=== PATIENT | male | born 1935 | race Caucasian/White ===

== ENCOUNTER 2016-10-20 09:07 | Day surgery (SDC) | payer MEDICARE, BC ==
[2016-10-19 09:02] VITALS: BMI 24.3
[~2016-10-20 09:07] MED LIST: LACTATED RINGERS 1,000 ML IV SCH; LIDOCAINE 1% 20 ML VIAL (10MG/ML) FOR IV START INTRADERMA PRN
[2016-10-20 09:51] VITALS: RESP 16; TEMP 97.8
[2016-10-20] MEDS ORDERED: LIDOCAINE 1% 20 ML VIAL (10MG/ML) FOR IV START INTRADERMA ONE (09:54)
[2016-10-20 09:56] LABS: Glucose,Whole Blood 138 mg/dL (75-99)
[2016-10-20] MEDS ORDERED: PROPOFOL 10 MG/ML 20 ML VIAL IV ONE (10:01)
--- NOTE | 2016-10-20 10:02 | P.GSHP ---
History of Present Illness H&P Date: 10/20/16 Chief Complaint: Anemia This a 81-year-old male who presents today for EGD colonoscopy. He's had issues with anemia. Patient denies any active GI bleed. Past Medical History Past Medical History: Cancer, Diabetes Mellitus, Hypertension Additional Past Medical History / Comment(s): hx. prostate cancer 2002, hx. colon polyps, kidney stones History of Any Multi-Drug Resistant Organisms: None Reported Past Surgical History: Appendectomy, Cholecystectomy, Prostate Surgery Additional Past Surgical History / Comment(s): prostatectomy Past Anesthesia/Blood Transfusion Reactions: No Reported Reaction Smoking Status: Never smoker - Past Family History Father Family Medical History: Cancer Additional Family Medical History / Comment(s): colon Medications and Allergies Home Medications Medication Instructions Recorded Confirmed Type Aspirin 81 mg PO DAILY 10/19/16 10/20/16 History Atorvastatin [Lipitor] 10 mg PO HS 10/19/16 10/20/16 History Cholecalciferol [Vitamin D3] 1,000 unit PO DAILY 10/19/16 10/20/16 History Cyanocobalamin [Vitamin B-12] 500 mcg PO DAILY 10/19/16 10/20/16 History Enalapril [Vasotec] 2.5 mg PO DAILY 10/19/16 10/20/16 History Multivitamin [Men's Multi-Vitamin] 1 each PO DAILY 10/19/16 10/20/16 History Pioglitazone [Actos] 15 mg PO DAILY 10/19/16 10/20/16 History Vit C/E/Zn/Coppr/Lutein/Zeaxan 1 each PO DAILY 10/19/16 10/20/16 History [Preservision Areds 2 Softgel] glipiZIDE [Glipizide] 20 mg PO BID 10/19/16 10/20/16 History metFORMIN HCL [Metformin HCl] 1,000 mg PO BID 10/19/16 10/20/16 History metFORMIN HCL [Metformin HCl] 500 mg PO 1200 10/19/16 10/20/16 History Allergies Allergy/AdvReac Type Severity Reaction Status Date / Time No Known Allergies Allergy Verified 10/19/16 08:42 Surgical - Exam Vital Signs Temp Pulse Resp BP Pulse Ox 97.8 F 89 16 178/85 97 10/20/16 09:44 10/20/16 09:44 10/20/16 09:44 10/20/16 09:44 10/20/16 09:44 - General well developed, no distress - Eyes PERRL - ENT normal pinna - Neck no masses - Respiratory normal expansion - Cardiovascular Rhythm: regular - Abdomen Abdomen: soft, non tender Results - Labs Abnormal Lab Results - Last 24 Hours (Table) 10/20/16 Range/Units 09:49 POC Glucose (mg/dL) 138 H (75-99) mg/dL Assessment and Plan Plan: Anemia. We'll perform EGD colonoscopy.
--- NOTE | 2016-10-20 10:24 | P.OP ---
Date of Procedure: 10/20/16 Preoperative Diagnosis: Anemia Postoperative Diagnosis: Antral gastritis Large hiatal hernia Esophagitis Severe diverticulosis Procedure(s) Performed: EGD Colonoscopy Implants: Anesthesia: MAC Surgeon: Carmelo Rutherford Pathology: other (Antrum, esophagus) Condition: stable Disposition: PACU Indications for Procedure: Operative Findings: Description of Procedure: The patient's placed on the endoscopy table in the lateral position. He received IV sedation. Digital rectal exam was performed which revealed no abnormalities. Flexible colonoscope was then placed patient anus passed rotator entire colon. The ileocecal valve visualized. Cecum, ascending and transverse colon had mild diverticular changes. In the descending; there is extensive diverticular changes. There is known to any active bleeding. The scope was then brought back the rectum and this appeared normal. Scope was withdrawn for patient. Next the gastroscope placed oropharynx passed in the esophagus stomach. Scope was placed through the pylorus. The first and second portion of duodenum appeared normal. Scope was then brought back the antrum and this was inflamed a biopsies was performed. The scope was retroflexed and the remainder of the stomach appeared normal. There is a large hiatal hernia. The GE junction was at 40 cm. The distal esophagus appeared mildly inflamed a biopsies performed. The proximal esophagus. Normal. Scope was withdrawn for patient.
[2016-10-20 10:42] VITALS: BP 138/78; PULSE 93
== END 2016-10-20 11:09 | disposition home or self-care (01) ==
LOC: ORWHC2ENDO 09:07
PROVIDERS: ATTEND Surgery
DX: K29.50 Unspecified chronic gastritis without bleeding (principal); K44.9 Diaphragmatic hernia without obstruction or gangrene; K20.9 Esophagitis, unspecified; K57.30 Diverticulosis of large intestine without perforation or abscess without bleeding; I10 Essential (primary) hypertension; E78.5 Hyperlipidemia, unspecified; Z85.46 Personal history of malignant neoplasm of prostate; E11.9 Type 2 diabetes mellitus without complications; Z79.84 Long term (current) use of oral hypoglycemic drugs; Z79.899 Other long term (current) drug therapy; Z79.82 Long term (current) use of aspirin
CPT/HCPCS: 88305; 88342; 45378; 43239; J2704

== ENCOUNTER 2016-11-28 10:55 | Emergency (ER) | payer MEDICARE, BC ==
[2016-11-28] MEDS ORDERED: diphenhydrAMINE 50 MG/ML 1 ML VIAL IVP STA (11:16)
[2016-11-28] MEDS ORDERED: FAMOTIDINE 20 MG/2 ML VIAL IV STA (11:16)
[2016-11-28] MEDS ORDERED: methylPREDNISolone SOD SUCCI 125 MG/2 ML VIAL IV STA (11:16)
--- NOTE | 2016-11-28 11:19 | ED ---
Allergic Reaction HPI - General Chief complaint: Allergic Reaction Stated complaint: High Blood Pressure Time Seen by Provider: 11/28/16 11:00 Source: patient, RN/MD, RN notes reviewed Mode of arrival: wheelchair Limitations: no limitations - History of Present Illness Initial Comments: This is a 81-year-old male who was getting a CAT scan today he received omni- 300 and shortly after the injection he started having sneezing orbital swelling and elevated blood pressure. He denies any difficulty with swallowing no shortness of breath. He was given prior to the injection Benadryl and prednisone. He denies any other complaints at this time. MD Complaint: allergic reaction, facial swelling - Related Data Home Medications Medication Instructions Recorded Confirmed Aspirin 81 mg PO DAILY 10/19/16 11/28/16 Atorvastatin [Lipitor] 10 mg PO HS 10/19/16 11/28/16 Cholecalciferol [Vitamin D3] 1,000 unit PO DAILY 10/19/16 11/28/16 Cyanocobalamin [Vitamin B-12] 500 mcg PO DAILY 10/19/16 11/28/16 Enalapril [Vasotec] 2.5 mg PO DAILY 10/19/16 11/28/16 Multivitamin [Men's Multi-Vitamin] 1 tab PO DAILY 10/19/16 11/28/16 Pioglitazone [Actos] 15 mg PO DAILY 10/19/16 11/28/16 Vit C/E/Zn/Coppr/Lutein/Zeaxan 1 cap PO DAILY 10/19/16 11/28/16 [Preservision Areds 2 Softgel] glipiZIDE [Glipizide] 20 mg PO BID 10/19/16 11/28/16 metFORMIN HCL [Metformin HCl] 1,000 mg PO BID 10/19/16 11/28/16 metFORMIN HCL [Metformin HCl] 500 mg PO 1200 10/19/16 11/28/16 Banophen 50mg 1 tab PO ONCE 11/28/16 11/28/16 Omeprazole [PriLOSEC] 40 mg PO DAILY 11/28/16 11/28/16 predniSONE 50 mg PO ONCE 11/28/16 11/28/16 Previous Rx's Medication Instructions Recorded Famotidine [Pepcid] 20 mg PO BID #10 tablet 11/28/16 methylPREDNISolone Dose Pack 4 mg PO DIRECTED #21 package 11/28/16 [Medrol Dose Pack] Allergies Allergy/AdvReac Type Severity Reaction Status Date / Time Iodinated Contrast- Oral and Allergy Rash/Hives Verified 11/28/16 11:43 IV Dye Review of Systems ROS Statement: Those systems with pertinent positive or pertinent negative responses have been documented in the HPI. ROS Other: All systems not noted in ROS Statement are negative. Past Medical History Past Medical History: Cancer, Diabetes Mellitus, Hypertension Additional Past Medical History / Comment(s): hx. prostate cancer 2002, hx. colon polyps, kidney stones History of Any Multi-Drug Resistant Organisms: None Reported Past Surgical History: Appendectomy, Cholecystectomy, Prostate Surgery Additional Past Surgical History / Comment(s): prostatectomy Past Anesthesia/Blood Transfusion Reactions: No Reported Reaction Smoking Status: Never smoker - Past Family History Father Family Medical History: Cancer Additional Family Medical History / Comment(s): colon General Exam - General Exam Comments Initial Comments: This is a well-developed well-nourished awake alert oriented history male Limitations: no limitations General appearance: alert, anxious, other (Some periorbital edema especially the lower aspect. Very mild hyperemia.) Head exam: Present: atraumatic, normocephalic, normal inspection Eye exam: Present: normal appearance, PERRL, EOMI. Absent: scleral icterus, conjunctival injection, periorbital swelling ENT exam: Present: normal exam, mucous membranes moist Neck exam: Present: normal inspection, other (No stridor JVD or bruits). Absent : tenderness, meningismus, lymphadenopathy Respiratory exam: Present: normal lung sounds bilaterally. Absent: respiratory distress, wheezes, rales, rhonchi, stridor Cardiovascular Exam: Present: regular rate, normal rhythm, normal heart sounds. Absent: systolic murmur, diastolic murmur, rubs, gallop, clicks GI/Abdominal exam: Present: soft, normal bowel sounds. Absent: distended, tenderness, guarding, rebound, rigid Extremities exam: Present: normal inspection, full ROM, normal capillary refill. Absent: tenderness, pedal edema, joint swelling, calf tenderness Back exam: Present: normal inspection Neurological exam: Present: alert, oriented X3, CN II-XII intact Psychiatric exam: Present: normal affect, normal mood Skin exam: Present: warm, dry, intact, normal color. Absent: rash Course Vital Signs 11/28/16 11/28/16 11/28/16 11:01 11:05 11:31 Temperature 97.2 F L Pulse Rate 87 89 Respiratory 18 20 18 Rate Blood Pressure 175/92 150/84 O2 Sat by Pulse 95 94 L Oximetry - Reevaluation(s) Reevaluation #1: 11/28/16 12:31 The patient is feeling much improved Medical Decision Making - Medical Decision Making The patient is improved and has no further symptoms he will be discharged. Disposition Clinical Impression: Allergic reaction Disposition: HOME SELF-CARE Condition: Good Instructions: Allergies (ED) Additional Instructions: [id number] Benadryl 25 mg every 6 hours as needed for reaction. Prescriptions: Famotidine [Pepcid] 20 mg PO BID #10 tablet methylPREDNISolone Dose Pack [Medrol Dose Pack] 4 mg PO DIRECTED #21 package Referrals: Jeramy Chandra MD [Primary Care Provider] - 1-2 days
[2016-11-28 11:34] VITALS: RESP 18
[2016-11-28 12:32] VITALS: BP 163/85; PULSE 87
[2016-11-28 12:46] VITALS: TEMP 97.4
== END 2016-11-28 12:47 | disposition home or self-care (01) ==
LOC: EC 10:55
DX: T78.49XA Other allergy, initial encounter (principal); I10 Essential (primary) hypertension; E11.9 Type 2 diabetes mellitus without complications; Z85.46 Personal history of malignant neoplasm of prostate; Z79.52 Long term (current) use of systemic steroids; Z79.82 Long term (current) use of aspirin; Z79.84 Long term (current) use of oral hypoglycemic drugs; Z79.899 Other long term (current) drug therapy
CPT/HCPCS: 99284 ×2; 96374 ×2; 96375 ×3; 82565; 84520; 71020; 74177; 36415; 78306; A9503; J1200; J2930; Q9967

== ENCOUNTER → 2016-11-28 | Outpatient (CLI) | payer MEDICARE, BC ==
[2016-11-28 09:14] LABS: Blood Urea Nitrogen 16 mg/dL (9-20); Non-African American GFR(MDRD) >60 (>60 ml/min/1.73 sqM)
[2016-11-28 10:33] LABS: Glucose,Whole Blood 209 mg/dL (75-99)
--- NOTE | 2016-11-28 11:19 | CT ---
EXAMINATION TYPE: CT abdomen pelvis w con DATE OF EXAM: 11/28/2016 COMPARISON: NONE HISTORY: Prostate CA CT DLP: 620.7 mGycm CONTRAST: CT scan of the abdomen and pelvis is performed with Oral Contrast and with IV Contrast, patient injec elisabeth with 100 mL of Omnipaque 300. FINDINGS: LUNG BASES-: No visible nodule. No infiltrate. Small sliding-type hiatal hernia noted. LIVER/GB: Cholecystectomy clips are in place. No space occupying hepatic lesion. Biliary tree is o f normal caliber. PANCREAS: No inflammation. No distinct mass. SPLEEN: No splenic enlargement. No lesion seen. ADRENALS: No nodule. No thickening. KIDNEYS/BLADDER: No hydronephrosis. No nephrolithiasis. No disctinct renal mass. Urinary bladder g rossly unremarkable. BOWEL: Normal appendix. Normal bowel caliber. No inflammation. GENITAL ORGANS: Prostatectomy changes are noted. Pelvic sidewall appears unremarkable. LYMPH NODES: No greater than 1cm abdominal or pelvic lymph nodes are appreciated. AORTA: No significant abnormality. OSSEOUS STRUCTURES: Degenerative changes L4-5. No evidence for blastic metastatic disease. OTHER: No significant additional abnormality is seen. IMPRESSION: 1. No evidence for metastatic disease at this time.
--- NOTE | 2016-11-28 12:07 | XR ---
EXAMINATION TYPE: XR chest 2V DATE OF EXAM: 11/28/2016 COMPARISON: NONE HISTORY: Prostate cancer, C 61 TECHNIQUE: Frontal and lateral views of the chest are obtained on 3 images. FINDINGS: There is no focal air space opacity, pleural effusion, or pneumothorax seen. The cardiac silhouette size is within normal limits. The osseous structures are intact. IMPRESSION: No acute cardiopulmonary process.
--- NOTE | 2016-11-28 14:30 | NM ---
EXAMINATION TYPE: NM bone scan whole body DATE OF EXAM: 11/28/2016 COMPARISON: CT abdomen pelvis same date HISTORY: Prostate carcinoma, C 61 Delayed whole-body scanning was performed following the injection of 27.5 mCi Tc 99m MDP. Images acq uired 4.5 hours post injection. FINDINGS: Soft tissue uptake is normal. Uptake within the feet, knees, hips, shoulders is likely degenerative. No areas of abnormal increased radiopharmaceutical uptake to suggest metastatic disease. IMPRESSION: Metastatic disease is not evident.
== END | disposition home or self-care (01) ==
LOC: RADCTMAIN 08:13
PROVIDERS: ATTEND Urology
DX: C61 Malignant neoplasm of prostate (principal)
CPT/HCPCS: 82565; 84520; 71020; 74177; 36415; 78306; A9503; Q9967

== ENCOUNTER 2022-08-15 06:57 | Day surgery (SDC) | payer MEDICARE, BC ==
[2022-08-14 11:39] VITALS: BMI 24.3
[~2022-08-15 06:57] MED LIST changes: +LIDOCAINE 1% (10MG/ML) FOR IV START INTRADERMA PRN; -LIDOCAINE 1% 20 ML VIAL (10MG/ML) FOR IV START INTRADERMA PRN
[2022-08-15] MEDS ORDERED: LACTATED RINGERS 1,000 ML IV ONE (07:35)
[2022-08-15 07:41] VITALS: TEMP 97.2
[2022-08-15 07:44] LABS: Glucose,Whole Blood 85 mg/dL (70-110)
[2022-08-15] MEDS ORDERED: PROPOFOL 10 MG/ML 20 ML VIAL IV ONE (08:21)
--- NOTE | 2022-08-15 08:55 | P.PCN ---
Date of Procedure: 08/15/22 Procedure(s) Performed: BRIEF HISTORY: Patient is a 86-year-old pleasant white male scheduled for an elective colonoscopy as a part of follow-up of large colon polyps. PROCEDURE PERFORMED: Colonoscopy with snare polypectomy and Endo Clip placement. PREOPERATIVE DIAGNOSIS: History of colon polyps. IV sedation per Anesthesia. PROCEDURE: After informed consent was obtained, the patient, was brought into the endoscopy unit. IV sedation was administered by Anesthesia under continuous monitoring. Digital rectal examination was normal. Initially the Olympus CF-160 flexible video colonoscope was then inserted in the rectum, gradually advanced into the cecum without any difficulty. Careful examination was performed as the scope was gradually being withdrawn. Ileocecal valve and the appendiceal orifice were visualized and appeared normal. Prep was excellent. Mucosa of the cecum appeared normal. On the ileocecal valve 3 cm flat polyp that was removed by piecemeal snare polypectomy followed by Endo Clip placement. In the hepatic flexure there was a 5 limited sessile polyp removed by snare polypectomy. Rest of the, ascending colon, transverse colon, descending colon, sigmoid colon, and rectum appeared normal. In the rectum there was a 5 mm polyp removed by snare polypectomy. Moderate sigmoid diverticulosis seen. Retroflexion was performed in the rectum and no lesions were seen. The patient tolerated the procedure well. IMPRESSION: 3 cm flat polyp on the ileocecal valve status post piecemeal snare polypectomy followed by Endo Clip placement 5 mm residual hepatic flexure polyp status post polypectomy 5 mm rectal polyp status post polypectomy Moderate sigmoid diverticulosis RECOMMENDATIONS: Findings of this examination were discussed with the patient as well as his family. He was advised to follow with the biopsy results. At his age I would not recommend any further surveillance colonoscopy..
[2022-08-15 09:30] VITALS: PULSE 70; RESP 16
[2022-08-15 09:47] VITALS: BP 150/72
== END 2022-08-15 10:00 | disposition home or self-care (01) ==
LOC: ORWHC2ENDO 06:57
PROVIDERS: ATTEND Internal Medicine Gastroenterology
DX: Z12.11 Encounter for screening for malignant neoplasm of colon (principal); D12.0 Benign neoplasm of cecum; D12.3 Benign neoplasm of transverse colon; D12.8 Benign neoplasm of rectum; K57.30 Diverticulosis of large intestine without perforation or abscess without bleeding; I10 Essential (primary) hypertension; E07.9 Disorder of thyroid, unspecified; E11.9 Type 2 diabetes mellitus without complications; Z79.890 Hormone replacement therapy; Z79.84 Long term (current) use of oral hypoglycemic drugs; Z79.899 Other long term (current) drug therapy; Z91.041 Radiographic dye allergy status
CPT/HCPCS: 88305; 45385; J2704

== ENCOUNTER 2023-10-10 16:56 | Emergency (ER) | payer MEDICARE, BC ==
[2023-10-10 19:04] LABS: INR 0.9 (<1.2); Partial Thromboplastin Time 23.7 sec (22.0-30.0); Prothrombin Time 10.3 sec (10.0-12.5)
[2023-10-10 19:10] LABS: ALT 17 U/L (4-49); AST 27 U/L (17-59); African American GFR (CKD) 60 (>60 ml/min/1.73 sqM); Albumin 4.4 g/dL (3.5-5.0); Alkaline Phosphatase 66 U/L (38-126); Anion Gap 9 mmol/L; Blood Urea Nitrogen 25 mg/dL (9-20); Calcium 9.7 mg/dL (8.4-10.2); Carbon Dioxide 26 mmol/L (22-30); Chloride 103 mmol/L (98-107); Glucose 164 mg/dL (74-99); Magnesium 2.2 mg/dL (1.6-2.3); Non-African American GFR(CKD) 52 (>60 ml/min/1.73 sqM); Phosphorus 3.6 mg/dL (2.5-4.5); Potassium 4.3 mmol/L (3.5-5.1); Sodium 138 mmol/L (137-145); Total Bilirubin 0.4 mg/dL (0.2-1.3); Total Protein 6.9 g/dL (6.3-8.2)
[2023-10-10 19:52] LABS: Basophils # (A) 0.1 k/uL (0-0.2); Basophils % (A) 1 %; Eosinophils # (A) 0.5 k/uL (0-0.7); Eosinophils % (A) 6 %; HCT 41.9 % (39.0-53.0); HGB 13.5 gm/dL (13.0-17.5); Lymphocytes # (A) 2.7 k/uL (1.0-4.8); Lymphocytes % (A) 34 %; MCH 31.4 pg (25.0-35.0); MCHC 32.3 g/dL (31.0-37.0); MCV 97.4 fL (80.0-100.0); Mean Platelet Volume 9.8; Monocytes # (A) 0.5 k/uL (0-1.0); Monocytes % (A) 6 %; Neutrophils % (A) 51 %; Platelet Count 155 k/uL (150-450); RDW 12.6 % (11.5-15.5); WBC 7.9 k/uL (3.8-10.6)
--- NOTE | 2023-10-10 20:18 | XR ---
EXAMINATION TYPE: XR chest 2V DATE OF EXAM: 10/10/2023 7:53 PM CLINICAL INDICATION:Male, 88 years old with history of Weakness; [facility] COMPARISON: Chest radiographs from 11/28/2016 TECHNIQUE: XR chest 2V Frontal and lateral views of the chest. FINDINGS: Lungs/Pleura: There is flattening of the diaphragm with increased lucency of the lungs. No evidence o f pneumothorax, pleural effusion or focal consolidation. Pulmonary vascularity: Unremarkable. Heart/mediastinum: Cardiomediastinal silhouette is unremarkable. Musculoskeletal: No acute osseous pathology. IMPRESSION: No acute cardiopulmonary disease/process.
--- NOTE | 2023-10-10 20:31 | CT ---
EXAMINATION TYPE: CT brain wo con CT DLP: 1168.1 mGycm, Automated exposure control for dose reduction was used. DATE OF EXAM: 10/10/2023 8:16 PM COMPARISON: None. CLINICAL INDICATION:Male, 88 years old with history of weakness, STROKE SYSTEMS TECHNIQUE: Brain: Axial CT images of the brain were obtained with coronal and sagittal reformats created and rev iewed. Contrast used: None. Oral contrast used: None. FINDINGS: Brain: Extra-axial spaces: No abnormal extra-axial fluid collections. Ventricular system: Dilatation in proportion to cerebral atrophy. Cerebral parenchyma: Cerebral atrophy. No acute intraparenchymal hemorrhage or mass effect. The braun -white junction is well differentiated. Scattered hypoattenuating areas are seen within the white mat ter. Cerebellum: Unremarkable. Mass effect: No evidence of midline shift. Intracranial vasculature: Atherosclerotic calcifications of the intracranial vessels. Soft tissues: Metallic density in the scalp on the right. Calvarium/osseous structures: No depressed skull fracture. Paranasal sinuses and mastoid air cells: Mild scattered paranasal sinus disease. Visualized orbits: Bilateral aphakia IMPRESSION: 1. No acute intracranial process. 2. Nonspecific white matter changes, likely secondary to chronic small vessel ischemic disease.
[2023-10-10 20:35] VITALS: RESP 18
--- NOTE | 2023-10-10 21:21 | ED ---
General Adult HPI - General Chief complaint: Weakness Stated complaint: poss stroke Time Seen by Provider: 10/10/23 19:13 Source: patient, family, RN notes reviewed Mode of arrival: ambulatory Limitations: physical limitation - History of Present Illness Initial comments: 88-year-old male presented to the ED with complaints of possible stroke. Patient states he has ongoing issues with fatigue and generalized weakness which she goes to physical therapy for. States he was at physical therapy and notes that the physical therapist was worried he was having a stroke and sent him to the evaluation. Patient states he is unsure why the physical therapist was having a stroke. States that he is not having troubles moving his arms or legs. States he has had a stroke in the past and does not think he is having any of those symptoms. Family also reports that he has been acting his normal self and is talking normally and also thinks that he is not having a stroke. Patient currently denies any complaints. Denies chest pain, shortness of breath, ab dominal pain, nausea, vomiting, diarrhea, changes in bladder habits. No fever or chills. Other than generalized weakness which is unchanged has no current complaints. - Related Data Home Medications Medication Instructions Recorded Confirmed Aspirin 81 mg PO DAILY 10/19/16 08/15/22 Cholecalciferol [Vitamin D3] 1,000 unit PO DAILY 10/19/16 08/15/22 Multivitamin [Men's Multi-Vitamin] 1 tab PO DAILY 10/19/16 08/15/22 metFORMIN HCL [Metformin HCl] 1,000 mg PO BID 10/19/16 08/15/22 Cyanocobalamin (Vitamin B-12) 500 mcg PO DAILY 08/14/22 08/15/22 [Vitamin B-12] Dapagliflozin Propanediol [Farxiga] 5 mg PO DAILY 08/14/22 08/15/22 Insulin Glargine [Lantus Vial] 12 unit SQ QAM 08/14/22 08/15/22 Levothyroxine Sodium [Synthroid] 50 mcg PO DAILY 08/14/22 08/15/22 Rosuvastatin Calcium 5 mg PO DAILY 08/14/22 08/15/22 Vit C/E/Zn/Coppr/Lutein/Zeaxan 1 each PO DAILY 08/14/22 08/15/22 [Preservision Areds 2 Softgel] Allergies Allergy/AdvReac Type Severity Reaction Status Date / Time Iodinated Contrast Media Allergy Rash/Hives Verified 08/15/22 07:20 [Iodinated Contrast- Oral and IV Dye] Review of Systems ROS Statement: Those systems with pertinent positive or pertinent negative responses have been documented in the HPI. ROS Other: All systems not noted in ROS Statement are negative. Past Medical History Past Medical History: Cancer, Diabetes Mellitus, Hypertension, Thyroid Disorder Additional Past Medical History / Comment(s): hx. prostate cancer 2002, hx. colon polyps, kidney stones History of Any Multi-Drug Resistant Organisms: None Reported Past Surgical History: Appendectomy, Cholecystectomy, Prostate Surgery Additional Past Surgical History / Comment(s): prostatectomy Past Anesthesia/Blood Transfusion Reactions: No Reported Reaction Past Psychological History: No Psychological Hx Reported Smoking Status: Never smoker Past Alcohol Use History: None Reported Past Drug Use History: None Reported - Past Family History Father Family Medical History: Cancer Additional Family Medical History / Comment(s): colon General Exam Limitations: physical limitation General appearance: alert, in no apparent distress Head exam: Present: atraumatic Neck exam: Present: normal inspection Respiratory exam: Present: normal lung sounds bilaterally Cardiovascular Exam: Present: regular rate GI/Abdominal exam: Present: soft, normal bowel sounds. Absent: distended, tenderness, guarding, rebound, rigid Extremities exam: Present: normal inspection Back exam: Present: normal inspection Neurological exam: Present: alert, oriented X3, CN II-XII intact (Iyxsuo-pw-xgtv, wotf-yu-lnkc, rapid alternating hand movements intact.) Skin exam: Present: warm, dry Course Vital Signs 10/10/23 10/10/23 16:58 20:02 Temperature 98.1 F Pulse Rate 77 79 Respiratory 16 18 Rate Blood Pressure 181/92 148/90 O2 Sat by Pulse 96 97 Oximetry Medical Decision Making - Medical Decision Making Was pt. sent in by a medical professional or institution (DrMekhi, PA, MERCHANDISE CLERK, urgent care, hospital, or usp...) When possible be specific @ -No Did you speak to anyone other than the patient for history (EMS, parent, family, police, friend...)? What history was obtained from this source @ -Also spoke to family for parts of history. For further details please see HPI. Did you review nursing and triage notes (agree or disagree)? Why? @ -I reviewed and agree with nursing and triage notes Were old charts reviewed (outside hosp., previous admission, EMS record, old EKG, old radiological studies, urgent care reports/EKG's, usp records)? Report findings @ -No old charts were reviewed Differential Diagnosis (chest pain, altered mental status, abdominal pain women, abdominal pain men, vaginal bleeding, weakness, fever, dyspnea, syncope, hea dache, dizziness, GI bleed, back pain, seizure, CVA, palpatations, mental health, musculoskeletal)? @ -Differential Weakness: Hypoglycemia, shock, sepsis, hyponatremia, anemia, infection, PR, ETOH, adverse medicine reaction, overdose, stroke, this is not meant to be an all-inclusive l ist. EKG interpreted by me (3pts min.). @ -EKG interpreted me showing a sinus rhythm with first-degree AV block with premature complexes. No acute ST-T wave changes. NM 257, QRS 89, QT/QTc 380/14. X-rays interpreted by me (1pt min.). @ -Chest x-ray inter by me which revealed no evidence of acute process. CT interpreted by me (1pt min.). @ -Brain CT and surrounding which revealed no evidence of acute process. U/S interpreted by me (1pt. min.). @ -None done What testing was considered but not performed or refused? (CT, X-rays, U/S, labs)? Why? @ -None What meds were considered but not given or refused? Why? @ -None Did you discuss the management of the patient with other professionals (professionals i.e. DrMekhi, PA, MERCHANDISE CLERK, lab, RT, psych nurse, social worker masters, production or plant engineer, teacher, promotion officer, case resource manager)? Give summary @ -No Was smoking cessation discussed for >3mins.? @ -No Was critical care preformed (if so, how long)? @ -No Were there social determinants of health that impacted care today? How? (Homelessness, low income, unemployed, alcoholism, drug addiction, transportation, low edu. Level, literacy, decrease access to med. care, [place] [facility], rehab)? @ -No Was there de-escalation of care discussed even if they declined (Discuss DNR or withdrawal of care, Hospice)? DNR status @ -No What co-morbidities impacted this encounter? (DM, HTN, Smoking, COPD, CAD, Cancer, CVA, ARF, Chemo, Hep., AIDS, mental health diagnosis, sleep apnea, morbid obesity)? @ -None Was patient admitted / discharged? Hospital course, mention meds given and route, prescriptions, significant lab abnormalities, going to OR and other pertinent info. @ -Discharge 88-year-old male presented to the ED with complaints of generalized weakness. Reports that this is an ongoing issue and was sent here by his physical therapist as his physical therapist thought he is having a stroke. Patient currently denies any symptoms and is unsure why he is here and family also reports that the patient is acting his normal self and is also unsure why the patient is here. Laboratory and imaging studies reviewed and are largely unremarkable. EKG showed a sinus rhythm without acute findings. Discharged home in stable condition advised close follow-up with his PCP. Discussed return precautions with patient and family who verbalized agreement. Undiagnosed new problem with uncertain prognosis? @ -No Drug Therapy requiring intensive monitoring for toxicity (Heparin, Nitro, Insulin, Cardizem)? @ -No Were any procedures done? @ -No Diagnosis/symptom? @ -Generalized weakness Acute, or Chronic, or Acute on Chronic? @ -Acute Uncomplicated (without systemic symptoms) or Complicated (systemic symptoms)? @ -Uncomplicated Side effects of treatment? @ -No Exacerbation, Progression, or Severe Exacerbation? @ -No Poses a threat to life or bodily function? How? (Chest pain, USA, PR, pneumonia, PE, COPD, DKA, ARF, appy, cholecystitis, CVA, Diverticulitis, Homicidal, Suicidal, threat to staff... and all critical care pts) @ -No - Lab Data Result diagrams: 10/10/23 18:47 10/10/23 18:47 Lab Results 10/10/23 10/10/23 10/10/23 Range/Units 18:47 18:47 18:47 WBC 7.9 (3.8-10.6) k/uL RBC 4.30 (4.30-5.90) m/uL Hgb 13.5 (13.0-17.5) gm/dL Hct 41.9 (39.0-53.0) % MCV 97.4 (80.0-100.0) fL MCH 31.4 (25.0-35.0) pg MCHC 32.3 (31.0-37.0) g/dL RDW 12.6 (11.5-15.5) % Plt Count 155 (150-450) k/uL MPV 9.8 Neutrophils % 51 % Lymphocytes % 34 % Monocytes % 6 % Eosinophils % 6 % Basophils % 1 % Neutrophils # 4.0 (1.3-7.7) k/uL Lymphocytes # 2.7 (1.0-4.8) k/uL Monocytes # 0.5 (0-1.0) k/uL Eosinophils # 0.5 (0-0.7) k/uL Basophils # 0.1 (0-0.2) k/uL PT 10.3 (10.0-12.5) sec INR 0.9 (<1.2) APTT 23.7 (22.0-30.0) sec Sodium 138 (137-145) mmol/L Potassium 4.3 (3.5-5.1) mmol/L Chloride 103 (98-107) mmol/L Carbon Dioxide 26 (22-30) mmol/L Anion Gap 9 mmol/L BUN 25 H (9-20) mg/dL Creatinine 1.24 (0.66-1.25) mg/dL Est GFR (CKD-EPI)AfAm 60 (>60 ml/min/1.73 sqM) Est GFR (CKD-EPI)NonAf 52 (>60 ml/min/1.73 sqM) Glucose 164 H (74-99) mg/dL Calcium 9.7 (8.4-10.2) mg/dL Phosphorus 3.6 (2.5-4.5) mg/dL Magnesium 2.2 (1.6-2.3) mg/dL Total Bilirubin 0.4 (0.2-1.3) mg/dL AST 27 (17-59) U/L ALT 17 (4-49) U/L Alkaline Phosphatase 66 (38-126) U/L Troponin I (0.000-0.034) ng/mL Total Protein 6.9 (6.3-8.2) g/dL Albumin 4.4 (3.5-5.0) g/dL Stool Occult Blood (Negative) 10/10/23 10/10/23 Range/Units 18:47 19:50 WBC (3.8-10.6) k/uL RBC (4.30-5.90) m/uL Hgb (13.0-17.5) gm/dL Hct (39.0-53.0) % MCV (80.0-100.0) fL MCH (25.0-35.0) pg MCHC (31.0-37.0) g/dL RDW (11.5-15.5) % Plt Count (150-450) k/uL MPV Neutrophils % % Lymphocytes % % Monocytes % % Eosinophils % % Basophils % % Neutrophils # (1.3-7.7) k/uL Lymphocytes # (1.0-4.8) k/uL Monocytes # (0-1.0) k/uL Eosinophils # (0-0.7) k/uL Basophils # (0-0.2) k/uL PT (10.0-12.5) sec INR (<1.2) APTT (22.0-30.0) sec Sodium (137-145) mmol/L Potassium (3.5-5.1) mmol/L Chloride (98-107) mmol/L Carbon Dioxide (22-30) mmol/L Anion Gap mmol/L BUN (9-20) mg/dL Creatinine (0.66-1.25) mg/dL Est GFR (CKD-EPI)AfAm (>60 ml/min/1.73 sqM) Est GFR (CKD-EPI)NonAf (>60 ml/min/1.73 sqM) Glucose (74-99) mg/dL Calcium (8.4-10.2) mg/dL Phosphorus (2.5-4.5) mg/dL Magnesium (1.6-2.3) mg/dL Total Bilirubin (0.2-1.3) mg/dL AST (17-59) U/L ALT (4-49) U/L Alkaline Phosphatase (38-126) U/L Troponin I <0.012 (0.000-0.034) ng/mL Total Protein (6.3-8.2) g/dL Albumin (3.5-5.0) g/dL Stool Occult Blood Negative (Negative) Disposition Clinical Impression: Generalized weakness Disposition: HOME SELF-CARE Condition: Good Additional Instructions: Please return to the Emergency Department if symptoms worsen or any other concerns. Please follow-up with your primary care provider. Is patient prescribed a controlled substance at d/c from ED?: No Referrals: Romero Simms MD [Primary Care Provider] - 1-2 days Time of Disposition: 21:24
[2023-10-10 21:39] VITALS: BP 165/80; PULSE 72; TEMP 97.9
== END 2023-10-10 21:39 | disposition home or self-care (01) ==
LOC: EC 16:56
DX: R53.1 Weakness (principal); I44.0 Atrioventricular block, first degree; Z91.041 Radiographic dye allergy status
CPT/HCPCS: 36415; 70450; 71046; 80053; 82272; 83735; 84100; 84484; 85025; 85610; 85730; 93005; 99285

== ENCOUNTER 2024-04-16 16:59 | Emergency (ER) | payer MEDICARE, BC ==
[2024-04-16 17:55] VITALS: BP 126/75; TEMP 98
--- NOTE | 2024-04-16 18:12 | ED ---
Altered Mental Status HPI - General Source: patient, RN notes reviewed Mode of arrival: ambulatory Limitations: no limitations <Tamara Olmos - Last Filed: 04/16/24 18:10> - General Source: patient, RN notes reviewed, old records reviewed <Jesse Armstrong - Last Filed: 04/16/24 23:27> - General Chief Complaint: Altered Mental Status Stated Complaint: abn labs Time Seen by Provider: 04/16/24 18:10 - History of Present Illness Initial Comments: Quick [id number] male with history of dementia presenting for evaluation of worsening agitation x 1 week. Family is present and explains that he was diagnosed with dementia 1 year ago and was told by Dr. Park to come to the ER if symptoms change or worsen. Patient denies any other symptoms such as dizziness, abdominal pain, chest pain, shortness of breath, urinary symptoms. (Tamara Olmos) Patient is an 88-year-old male presents emergency department after being told to come here for further evaluation for possible worsening dementia. Patient's family has noticed that over the last few weeks to months he has been having more agitation that is intermittent. No known palliative or provocative factors. Otherwise has been acting normally. Has no other acute complaints at this time. He denies any acute symptoms at this time including chest pain, shortness of breath. Presents with his and daughter he states he otherwise is acting normally. They are here because the neurologist recommended they come to the ER for evaluation and he does not have an appointment for 1 month. He is on medications for his dementia. Originally seen as a quick note. I evaluated patient when he is placed in a room. (Jesse Armstrong) - Related Data Home Medications Medication Instructions Recorded Confirmed Aspirin 81 mg PO DAILY 10/19/16 08/15/22 Cholecalciferol [Vitamin D3] 1,000 unit PO DAILY 10/19/16 08/15/22 Multivitamin [Men's Multi-Vitamin] 1 tab PO DAILY 10/19/16 08/15/22 metFORMIN HCL [Metformin HCl] 1,000 mg PO BID 10/19/16 08/15/22 Cyanocobalamin (Vitamin B-12) 500 mcg PO DAILY 08/14/22 08/15/22 [Vitamin B-12] Dapagliflozin Propanediol [Farxiga] 5 mg PO DAILY 08/14/22 08/15/22 Insulin Glargine [Lantus Vial] 12 unit SQ QAM 08/14/22 08/15/22 Levothyroxine Sodium [Synthroid] 50 mcg PO DAILY 08/14/22 08/15/22 Rosuvastatin Calcium 5 mg PO DAILY 08/14/22 08/15/22 Vit C/E/Zn/Coppr/Lutein/Zeaxan 1 each PO DAILY 08/14/22 08/15/22 [Preservision Areds 2 Softgel] Allergies Allergy/AdvReac Type Severity Reaction Status Date / Time Iodinated Contrast Media Allergy Rash/Hives Verified 04/16/24 17:56 [Iodinated Contrast- Oral and IV Dye] Review of Systems ROS Other: All systems not noted in ROS Statement are negative. <Tamara Olmos - Last Filed: 04/16/24 18:10> ROS Other: All systems not noted in ROS Statement are negative. <Jesse Armstrong - Last Filed: 04/16/24 23:27> ROS Statement: Those systems with pertinent positive or pertinent negative responses have been documented in the HPI. Review of Systems: CONST: Denies fever EYES: Denies blurry vision ENT: Denies nasal congestion C/V: Denies Chest pain RESP: Denies shortness of breath GI: Denies abdominal pain : Denies dysuria SKIN: Denies rash. MSK: Denies joint pain. NEURO: Denies headache (Jesse Armstrong) Past Medical History Past Medical History: Cancer, Diabetes Mellitus, Hypertension, Thyroid Disorder Additional Past Medical History / Comment(s): hx. prostate cancer 2002, hx. colon polyps, kidney stones History of Any Multi-Drug Resistant Organisms: None Reported Past Surgical History: Appendectomy, Cholecystectomy, Prostate Surgery Additional Past Surgical History / Comment(s): prostatectomy Past Anesthesia/Blood Transfusion Reactions: No Reported Reaction Past Psychological History: No Psychological Hx Reported Smoking Status: Never smoker Past Alcohol Use History: None Reported Past Drug Use History: None Reported - Past Family History Father Family Medical History: Cancer Additional Family Medical History / Comment(s): colon <Tamara Oloms - Last Filed: 04/16/24 18:10> General Exam Limitations: no limitations <Tamara Olmos - Last Filed: 04/16/24 18:10> <Jesse Armstrong - Last Filed: 04/16/24 23:27> - General Exam Comments Initial Comments: Visual Physical Exam Vital signs reviewed General: Well-appearing, nontoxic, no acute distress. Head: Normocephalic, atraumatic Eyes: PERRLA, EOMI ENT: Airway patent Chest: Nonlabored breathing Skin: No visual rash, normal skin tone Neuro: Alert and oriented 3 Musculoskeletal: No gross abnormalities (Tamara Olmos) General: Appears in no acute distress. HEAD: Normal with no signs of head trauma. EYES: PERRLA, EOMI, conjunctiva normal, no discharge. ENT: Hearing grossly intact, normal oropharynx. RESPIRATORY: Clear breath sounds bilaterally. No wheezes, rales, or rhonchi. C/V: Regular rate and rhythm. S1 and S2 auscultated, no edema, peripheral pulses 2+ and intact throughout ABD: Abd is soft, nontender, nondistended EXT: Normal range of motion, no obvious deformity SKIN: No rashes or lesions observed on exposed skin. NEURO: Alert and oriented x 4. Cranial nerves II-XII intact. No focal sensory or strength deficits. (Jesse Armstrong) Course Vital Signs 04/16/24 04/16/24 17:49 20:47 Temperature 98.0 F Pulse Rate 75 73 Respiratory 18 16 Rate Blood Pressure 126/75 O2 Sat by Pulse 97 97 Oximetry Medical Decision Making <Tamara Olmos - Last Filed: 04/16/24 18:10> - Lab Data Result diagrams: 04/16/24 19:19 04/16/24 19:19 - EKG Data -: EKG Interpreted by Me <Jesse Armstrong - Last Filed: 04/16/24 23:27> - Medical Decision Making I completed the quick note portion of this chart signed Tamara Olmos PA-C (Tamara Olmos) Was pt. sent in by a medical professional or institution ([facility]AL[facility] Mabry, [employer]OM[employer] WATCHER, urgent care, hospital, or longterm...) When possible be specific @ -No Did you speak to anyone other than the patient for history (EMS, parent, family, police, friend...)? What history was obtained from this source @ -Patient's daughter and provide the majority the patient's past medical history. Did you review nursing and triage notes (agree or disagree)? Why? @ -I reviewed and agree with nursing and triage notes Were old charts reviewed (outside hosp., previous admission, EMS record, old EKG, old radiological studies, urgent care reports/EKG's, longterm records)? Report findings @ -No old charts were reviewed Differential Diagnosis (chest pain, altered mental status, abdominal pain women, abdominal pain men, vaginal bleeding, weakness, fever, dyspnea, syncope, headache, dizziness, GI bleed, back pain, seizure, CVA, palpatations, mental health, musculoskeletal)? @ -Dehydration, UTI, dementia. This list is not all inclusive. EKG interpreted by me (3pts min.). @ -As above X-rays interpreted by me (1pt min.). @ -X-ray reveals no obvious acute cardiopulmonary process. CT interpreted by me (1pt min.). @ -Brain reveals no evidence of acute intracranial process or injury. U/S interpreted by me (1pt. min.). @ -None done What testing was considered but not performed or refused? (CT, X-rays, U/S, labs)? Why? @ -None What meds were considered but not given or refused? Why? @ -None Did you discuss the management of the patient with other professionals (professionals i.e. , PA, AUTOMAT WATCHER, lab, RT, psych nurse, social work administrator, vp revenue cycle, teacher, community service patrol officer, immigration case worker)? Give summary @ -No Was smoking cessation discussed for >3mins.? @ -No Was critical care preformed (if so, how long)? @ -No Were there social determinants of health that impacted care today? How? (Homelessness, low income, unemployed, alcoholism, drug addiction, transportation, low edu. Level, literacy, decrease access to med. care, retirement, rehab)? @ -No Was there de-escalation of care discussed even if they declined (Discuss DNR or withdrawal of care, Hospice)? DNR status @ -No What co-morbidities impacted this encounter? (DM, HTN, Smoking, COPD, CAD, Cancer, CVA, ARF, Chemo, Hep., AIDS, mental health diagnosis, sleep apnea, morbid obesity)? @ -Dementia Was patient admitted / discharged? Hospital course, mention meds given and route, prescriptions, significant lab abnormalities, going to OR and other pertinent info. @ -Patient presents for workup due to agitation and ongoing for weeks to months with a history of dementia. Likely progressive dementia but we will obtain generalized workup for altered mental status. Family in agreement this plan. Vital signs unremarkable. Workup started in triage as a quick note. Brain CT showed no evidence of acute intracranial process. Chest x-ray unremarkable. Laboratory studies otherwise within acceptable limits. Discussed results with family and patient. He will be discharged home at this time. They were in agreement this plan. They will attempt to follow-up with the neurologist. Strict return precautions discussed. Patient requires further workup for dementia and may need some medication adjustments and they were in agreement with this assessment. I instructed the patient to follow up with their PCP in the next 1-3 days. I ex plained that the patient should return to the emergency department if they experience any worsening symptoms. Strict return precautions were discussed with the patient. The patient expressed understanding of these instructions. I answered all questions that the patient had. The patient was discharged home in good condition with their prescriptions and follow up information. Undiagnosed new problem with uncertain prognosis? @ -No Drug Therapy requiring intensive monitoring for toxicity (Heparin, Nitro, Insulin, Cardizem)? @ -No Were any procedures done? @ -No Diagnosis/symptom? @ -Dementia Acute, or Chronic, or Acute on Chronic? @ -Acute Uncomplicated (without systemic symptoms) or Complicated (systemic symptoms)? @ -Complicated Side effects of treatment? @ -No Exacerbation, Progression, or Severe Exacerbation? @ -No Poses a threat to life or bodily function? How? (Chest pain, USA, NC, pneumonia, PE, COPD, DKA, ARF, appy, cholecystitis, CVA, Diverticulitis, Homicidal, Suicidal, threat to staff... and all critical care pts) @ -Unlikely at this time (Jesse Armstrong) - Lab Data Lab Results 04/16/24 04/16/24 04/16/24 Range/Units 19:19 19:19 19:23 WBC 8.4 (3.8-10.6) k/uL RBC 4.19 L (4.30-5.90) m/uL Hgb 13.2 (13.0-17.5) gm/dL Hct 40.6 (39.0-53.0) % MCV 96.9 (80.0-100.0) fL MCH 31.4 (25.0-35.0) pg MCHC 32.4 (31.0-37.0) g/dL RDW 12.5 (11.5-15.5) % Plt Count 181 (150-450) k/uL MPV 8.6 Neutrophils % 58 % Lymphocytes % 26 % Monocytes % 6 % Eosinophils % 7 % Basophils % 1 % Neutrophils # 4.9 (1.3-7.7) k/uL Lymphocytes # 2.2 (1.0-4.8) k/uL Monocytes # 0.5 (0-1.0) k/uL Eosinophils # 0.6 (0-0.7) k/uL Basophils # 0.1 (0-0.2) k/uL Sodium 138 (137-145) mmol/L Potassium 4.6 (3.5-5.1) mmol/L Chloride 106 (98-107) mmol/L Carbon Dioxide 27 (22-30) mmol/L Anion Gap 5 mmol/L BUN 26 H (9-20) mg/dL Creatinine 1.27 H (0.66-1.25) mg/dL Est GFR (CKD-EPI)AfAm 58 (>60 ml/min/1.73 sqM) Est GFR (CKD-EPI)NonAf 50 (>60 ml/min/1.73 sqM) Glucose 126 H (74-99) mg/dL POC Glucose (mg/dL) 122 H (70-110) mg/dL POC Glu [employer] Manager ID Ricardo Blank Calcium 10.1 (8.4-10.2) mg/dL Total Bilirubin 0.6 (0.2-1.3) mg/dL AST 26 (17-59) U/L ALT 16 (4-49) U/L Alkaline Phosphatase 63 (38-126) U/L Total Protein 6.7 (6.3-8.2) g/dL Albumin 4.2 (3.5-5.0) g/dL Urine Color Urine Appearance (Clear) Urine pH (5.0-8.0) Ur Specific Anton (1.001-1.035) Urine Protein (Negative) Urine Glucose (UA) (Negative) Urine Ketones (Negative) Urine Blood (Negative) Urine Nitrite (Negative) Urine Bilirubin (Negative) Urine Urobilinogen (<2.0) mg/dL Ur Leukocyte Esterase (Negative) Urine RBC (0-5) /hpf Urine WBC (0-5) /hpf Ur Squamous Epith Cells (0-4) /hpf Influenza Type A (PCR) (Not Detectd) Influenza Type B (PCR) (Not Detectd) RSV (PCR) (Not Detectd) SARS-CoV-2 (PCR) (Not Detectd) 04/16/24 04/16/24 Range/Units 19:24 19:30 WBC (3.8-10.6) k/uL RBC (4.30-5.90) m/uL Hgb (13.0-17.5) gm/dL Hct (39.0-53.0) % MCV (80.0-100.0) fL MCH (25.0-35.0) pg MCHC (31.0-37.0) g/dL RDW (11.5-15.5) % Plt Count (150-450) k/uL MPV Neutrophils % % Lymphocytes % % Monocytes % % Eosinophils % % Basophils % % Neutrophils # (1.3-7.7) k/uL Lymphocytes # (1.0-4.8) k/uL Monocytes # (0-1.0) k/uL Eosinophils # (0-0.7) k/uL Basophils # (0-0.2) k/uL Sodium (137-145) mmol/L Potassium (3.5-5.1) mmol/L Chloride (98-107) mmol/L Carbon Dioxide (22-30) mmol/L Anion Gap mmol/L BUN (9-20) mg/dL Creatinine (0.66-1.25) mg/dL Est GFR (CKD-EPI)AfAm (>60 ml/min/1.73 sqM) Est GFR (CKD-EPI)NonAf (>60 ml/min/1.73 sqM) Glucose (74-99) mg/dL POC Glucose (mg/dL) (70-110) mg/dL POC Glu [employer] Manager ID Calcium (8.4-10.2) mg/dL Total Bilirubin (0.2-1.3) mg/dL AST (17-59) U/L ALT (4-49) U/L Alkaline Phosphatase (38-126) U/L Total Protein (6.3-8.2) g/dL Albumin (3.5-5.0) g/dL Urine Color Colorless Urine Appearance Clear (Clear) Urine pH 7.5 (5.0-8.0) Ur Specific Anton 1.023 (1.001-1.035) Urine Protein Negative (Negative) Urine Glucose (UA) 4+ H (Negative) Urine Ketones Negative (Negative) Urine Blood Negative (Negative) Urine Nitrite Negative (Negative) Urine Bilirubin Negative (Negative) Urine Urobilinogen <2.0 (<2.0) mg/dL Ur Leukocyte Esterase Trace H (Negative) Urine RBC 2 (0-5) /hpf Urine WBC 8 H (0-5) /hpf Ur Squamous Epith Cells <1 (0-4) /hpf Influenza Type A (PCR) Not Detected (Not Detectd) Influenza Type B (PCR) Not Detected (Not Detectd) RSV (PCR) Not Detected (Not Detectd) SARS-CoV-2 (PCR) Not Detected (Not Detectd) - EKG Data EKG Comments: 12-lead Electrocardiogram Interpretation Note EKG was reviewed and interpreted by myself. 12-lead ECG performed at 1921 is interpreted by me as revealing sinus rhythm with first-degree AV block at a rate of 70 beats per minute. [place] is normal. MD interval is 262 ms, QRS duration is 90 ms, QTc is 419 ms.. There were no ST or T wave abnormalities to suggest myocardial ischemia or injury. R wave progression across the precordium was satisfactory. By my interpretation this EKG is non-diagnostic for acute ischemia. (Jesse Armstrong) Disposition <Tamara Olmos - Last Filed: 04/16/24 18:10> Is patient prescribed a controlled substance at d/c from ED?: No Time of Disposition: 20:17 <Jesse Armstrong - Last Filed: 04/16/24 23:27> Clinical Impression: Dementia Disposition: HOME SELF-CARE Condition: Good Instructions (If sedation given, give patient instructions): Dementia (ED) Additional Instructions: Patient is likely experiencing progressively worsening dementia. Please follow- up with your neurologist in the next 1 to 3 days if possible. Return to the emergency department if worsening symptoms. Referrals: Romero Simms MD [Primary Care Provider] - 1-2 days
--- NOTE | 2024-04-16 18:43 | CT ---
EXAMINATION TYPE: CT brain wo con DATE OF EXAM: 04/16/2024 6:32 PM COMPARISON: 10/10/2023 CLINICAL INDICATION: Male, 88 years old with history of altered mental status, ams TECHNIQUE: CT of the brain is performed utilizing 3 mm thick sections through the posterior fossa and 3 mm thick sections through the remaining calvarium. Study is performed within 24 hours of arrival to the hospital. Contrast used: mL of , (none if empty) CT DLP: 1121.9 mGycm, Automated exposure control for dose reduction was used. FINDINGS: No abnormal hyperdensity is present to suggest an acute intracranial hemorrhage. No mass lesion is evident. Periventricular white matter hypodensity is present, likely on the basis of chronic white matter isch emic changes. No acute infarct evident Ventricles and sulci are prominent for the patient age. Paranasal sinuses and mastoid air cells within the [id number] are clear. IMPRESSION: 1. No acute intracranial process. Follow up MRI can be performed as clinically indicated. 2. Chronic appearing periventricular white matter ischemic changes with atrophy [facility], , 04/16/2024 6:41 PM
[2024-04-16 19:25] LABS: Glucose,Whole Blood 122 mg/dL (70-110)
[2024-04-16 19:32] LABS: Basophils # (A) 0.1 k/uL (0-0.2); Basophils % (A) 1 %; Eosinophils # (A) 0.6 k/uL (0-0.7); Eosinophils % (A) 7 %; HCT 40.6 % (39.0-53.0); HGB 13.2 gm/dL (13.0-17.5); Lymphocytes # (A) 2.2 k/uL (1.0-4.8); Lymphocytes % (A) 26 %; MCH 31.4 pg (25.0-35.0); MCHC 32.4 g/dL (31.0-37.0); MCV 96.9 fL (80.0-100.0); Mean Platelet Volume 8.6; Monocytes # (A) 0.5 k/uL (0-1.0); Monocytes % (A) 6 %; Neutrophils # (A) 4.9 k/uL (1.3-7.7); Neutrophils % (A) 58 %; Platelet Count 181 k/uL (150-450); RBC 4.19 m/uL (4.30-5.90); RDW 12.5 % (11.5-15.5); WBC 8.4 k/uL (3.8-10.6)
[2024-04-16] MEDS: SODIUM CHLORIDE 0.9% 1,000 ML IV STA (19:41)
[2024-04-16 19:42] LABS: ALT 16 U/L (4-49); AST 26 U/L (17-59); African American GFR (CKD) 58 (>60 ml/min/1.73 sqM); Albumin 4.2 g/dL (3.5-5.0); Alkaline Phosphatase 63 U/L (38-126); Anion Gap 5 mmol/L; Blood Urea Nitrogen 26 mg/dL (9-20); Calcium 10.1 mg/dL (8.4-10.2); Carbon Dioxide 27 mmol/L (22-30); Chloride 106 mmol/L (98-107); Glucose 126 mg/dL (74-99); Non-African American GFR(CKD) 50 (>60 ml/min/1.73 sqM); Potassium 4.6 mmol/L (3.5-5.1); Sodium 138 mmol/L (137-145); Total Bilirubin 0.6 mg/dL (0.2-1.3); Total Protein 6.7 g/dL (6.3-8.2)
--- NOTE | 2024-04-16 19:57 | XR ---
EXAMINATION TYPE: XR chest 2V DATE OF EXAM: 04/16/2024 7:35 PM COMPARISON: [id number] CLINICAL INDICATION: Male, 88 years old with history of cough, TECHNIQUE: XR chest 2V view(s) obtained. FINDINGS: The heart size is normal. The pulmonary vasculature is normal. The lungs are clear. IMPRESSION: 1. No acute pulmonary process. [facility], , 04/16/2024 7:55 PM
[2024-04-16 20:03] LABS: Appearance,Urine Clear (Clear); Bilirubin,Urine Negative (Negative); Blood,Urine Negative (Negative); Color,Urine Colorless; Glucose,Urine (UA) 4+ (Negative); Ketones,Urine Negative (Negative); Leukocyte Esterase,Urine Trace (Negative); Nitrite,Urine Negative (Negative); PH, Urine 7.5 (5.0-8.0); Protein,Urine Negative (Negative); RBC,Urine 2 /hpf (0-5); Specific Gravity,Urine 1.023 (1.001-1.035); Squamous Epithelial Cell,Urine <1 /hpf (0-4); Urobilinogen,Urine <2.0 mg/dL (<2.0); WBC,Urine 8 /hpf (0-5)
[2024-04-16 20:48] VITALS: PULSE 73; RESP 16
== END 2024-04-16 20:48 | disposition home or self-care (01) ==
LOC: EC 16:59
DX: F03.911 Unspecified dementia, unspecified severity, with agitation (principal); I44.0 Atrioventricular block, first degree; Z91.041 Radiographic dye allergy status
CPT/HCPCS: 36415; 70450; 71046; 80053; 81001; 85025; 87636; 93005; 96360; 99285

== ENCOUNTER 2024-04-23 18:34 | Inpatient (IN) | payer MEDICARE, BC ==
[2024-04-23 19:26] LABS: ALT 15 U/L (4-49); AST 26 U/L (17-59); African American GFR (CKD) 60 (>60 ml/min/1.73 sqM); Alkaline Phosphatase 73 U/L (38-126); Anion Gap 8 mmol/L; Blood Urea Nitrogen 27 mg/dL (9-20); Calcium 9.6 mg/dL (8.4-10.2); Carbon Dioxide 27 mmol/L (22-30); Chloride 100 mmol/L (98-107); Glucose 195 mg/dL (74-99); Magnesium 2.3 mg/dL (1.6-2.3); Non-African American GFR(CKD) 52 (>60 ml/min/1.73 sqM); Potassium 4.4 mmol/L (3.5-5.1); Sodium 135 mmol/L (137-145); Total Bilirubin 0.5 mg/dL (0.2-1.3); Total Protein 6.4 g/dL (6.3-8.2)
[2024-04-23 19:34] LABS: NT-Pro-B-Type Natriuretic Pept 324 pg/mL
--- NOTE | 2024-04-23 19:34 | ED ---
SOB HPI - General Stated Complaint: KAREN Time Seen by Provider: 04/23/24 18:39 Source: RN notes reviewed, old records reviewed Mode of arrival: EMS Limitations: no limitations - History of Present Illness Initial Comments: This is a 88-year-old male to the ER for evaluation today. Patient presents today for evaluation regards to shortness of breath possible aspiration activity. Patient presents today for evaluation of severe aspiration cough congestion immediately after eating food and his shortness of breath is gotten worse MD Complaint: shortness of breath, cough -: hour(s) Severity: moderate Severity scale (1-10): 6 Quality: sharp Consistency: intermittent Improves With: nothing Worsens With: exertion Context: anxiety, other (Recent aspiration event) Associated Symptoms: denies other symptoms - Related Data Home Medications Medication Instructions Recorded Confirmed Aspirin 81 mg PO DAILY 10/19/16 04/23/24 Multivitamin [Men's Multi-Vitamin] 1 tab PO DAILY 10/19/16 04/23/24 metFORMIN HCL [Metformin HCl] 500 mg PO BID 10/19/16 04/23/24 Cyanocobalamin (Vitamin B-12) 1,000 mcg PO DAILY 08/14/22 04/23/24 [Vitamin B-12] Rosuvastatin Calcium 5 mg PO DAILY 08/14/22 04/23/24 Vit C/E/Zn/Coppr/Lutein/Zeaxan 1 cap PO BID 08/14/22 04/23/24 [Preservision Areds 2 Softgel] Empagliflozin [Jardiance] 10 mg PO DAILY 04/23/24 04/23/24 Ferrous Sulfate [Iron (65 MG 325 mg PO DAILY 04/23/24 04/23/24 Elemental)] Insulin Degludec [Tresiba 10 units SQ DAILY 04/23/24 04/23/24 Flextouch U-100 Pen] Levothyroxine Sodium [Synthroid] 75 mcg PO DAILY 04/23/24 04/23/24 Memantine [Namenda] 10 mg PO BID 04/23/24 04/23/24 Nystatin [Nystop] 1 applic TOPICAL BID 04/23/24 04/23/24 Psyllium Husk (with Sugar) 1 tbsp PO TID 04/23/24 04/23/24 [Metamucil Powder] Vitamin D3(Unknown Dose) 1 tab PO DAILY 04/23/24 04/23/24 Previous Rx's Medication Instructions Recorded Amoxic-Pot Clav 875-125Mg 1 tab PO BID 7 Days #14 tab 04/27/24 [Augmentin 875-125] Allergies Allergy/AdvReac Type Severity Reaction Status Date / Time Iodinated Contrast Media Allergy Rash/Hives Verified 04/23/24 19:28 [Iodinated Contrast- Oral and IV Dye] Review of Systems ROS Statement: Those systems with pertinent positive or pertinent negative responses have been documented in the HPI. ROS Other: All systems not noted in ROS Statement are negative. Past Medical History Past Medical History: Cancer, Diabetes Mellitus, Hypertension, Thyroid Disorder Additional Past Medical History / Comment(s): hx. prostate cancer 2002, hx. colon polyps, kidney stones History of Any Multi-Drug Resistant Organisms: None Reported Past Surgical History: Appendectomy, Cholecystectomy, Prostate Surgery Additional Past Surgical History / Comment(s): prostatectomy Past Anesthesia/Blood Transfusion Reactions: No Reported Reaction Past Psychological History: No Psychological Hx Reported Smoking Status: Never smoker Past Alcohol Use History: None Reported Past Drug Use History: None Reported - Past Family History Father Family Medical History: Cancer Additional Family Medical History / Comment(s): colon General Exam Limitations: altered mental status, physical limitation General appearance: alert, in no apparent distress Head exam: Present: atraumatic, normocephalic, normal inspection Eye exam: Present: normal appearance, PERRL, EOMI. Absent: scleral icterus, conjunctival injection, periorbital swelling ENT exam: Present: normal exam, mucous membranes moist Neck exam: Present: normal inspection. Absent: tenderness, meningismus, lymphadenopathy Respiratory exam: Present: normal lung sounds bilaterally. Absent: respiratory distress, wheezes, rales, rhonchi, stridor Cardiovascular Exam: Present: regular rate, normal rhythm, normal heart sounds. Absent: systolic murmur, diastolic murmur, rubs, gallop, clicks GI/Abdominal exam: Present: soft, normal bowel sounds. Absent: distended, tenderness, guarding, rebound, rigid Extremities exam: Present: normal inspection, full ROM, normal capillary refill. Absent: tenderness, pedal edema, joint swelling, calf tenderness Back exam: Present: normal inspection Neurological exam: Present: alert, oriented X3, CN II-XII intact Psychiatric exam: Present: normal affect, normal mood Skin exam: Present: warm, dry, intact, normal color. Absent: rash Course Vital Signs 04/23/24 04/23/24 04/23/24 18:38 20:30 20:41 Temperature 98.6 F Pulse Rate 91 88 87 Respiratory 22 Rate Blood Pressure 148/96 O2 Sat by Pulse 96 Oximetry 04/23/24 04/24/24 04/24/24 21:41 00:27 01:14 Temperature Pulse Rate 89 100 96 Respiratory 18 18 18 Rate Blood Pressure 126/81 126/80 137/90 O2 Sat by Pulse 97 90 L Oximetry 04/24/24 04/24/24 04/24/24 02:27 03:11 05:58 Temperature 98.5 F 99.1 F Pulse Rate 90 90 96 Respiratory 18 17 17 Rate Blood Pressure 124/72 146/87 145/84 O2 Sat by Pulse 94 L 95 93 L Oximetry 04/24/24 04/24/24 04/24/24 07:32 08:35 09:04 Temperature 98.3 F Pulse Rate 98 78 Respiratory 22 18 Rate Blood Pressure 149/85 157/86 O2 Sat by Pulse 96 95 96 Oximetry 04/24/24 04/24/24 04/24/24 12:18 12:26 13:20 Temperature 98.5 F Pulse Rate 76 78 84 Respiratory 18 Rate Blood Pressure 127/65 O2 Sat by Pulse 96 Oximetry 04/24/24 04/24/24 04/24/24 15:23 15:34 16:07 Temperature Pulse Rate 84 89 97 Respiratory 18 Rate Blood Pressure 127/68 O2 Sat by Pulse 98 Oximetry - Reevaluation(s) Reevaluation #1: 04/23/24 19:20 Records reviewed Reevaluation #2: 04/23/24 19:20 Patient symptoms unchanged Reevaluation #3: 04/23/24 19:22 patient has no new symptoms Reevaluation #4: Was pt. sent in by a medical professional or institution (, PA, DIRECTOR OF MEDICAL SERVICES, urgent care, hospital, or half-way...) When possible be specific @ -no Did you speak to anyone other than the patient for history (EMS, parent, family, police, friend...)? What history was obtained from this source @ -no Did you review nursing and triage notes (agree or disagree)? Why? @ -agree Are old charts reviewed (outside hosp., previous admission, EMS record, old EKG, old radiological studies, urgent care reports/EKG's, half-way records)? Report findings @ -yes Differential Diagnosis (chest pain, altered mental status, abdominal pain women, abdominal pain men, vaginal bleeding, weakness, fever, dyspnea, syncope, headache, dizziness, GI bleed, back pain, seizure, CVA, palpatations, mental health, musculoskeletal)? @ -prior EKG interpreted by me (3pts min.). @ -yes X-rays interpreted by me (1pt min.). @ -yes pneumonia g with COPD CT interpreted by me (1pt min.). @ -no U/S interpreted by me (1pt. min.). @ -no What testing was considered but not performed or refused? (CT, X-rays, U/S, labs)? Why? @ -none What meds were considered but not given or refused? Why? @ -none Did you discuss the management of the patient with other professionals ( professionals i.e. , PA, DIRECTOR OF MEDICAL SERVICES, lab, RT, psych nurse, health and social care teacher, tug boat engineer, teacher, supervisor dog license officer, rifle case repairer)? Give summary @ -no Was smoking cessation discussed for >3mins.? @ -no Was critical care preformed (if so, how long)? @ -no Were there social determinants of health that impacted care today? How? (Homelessness, low income, unemployed, alcoholism, drug addiction, transportation, low edu. Level, literacy, decrease access to med. care, alf, rehab)? @ -none Was there de-escalation of care discussed even if they declined (Discuss DNR or withdrawal of care, Hospice)? DNR status @ -no What co-morbidities impacted this encounter? (DM, HTN, Smoking, COPD, CAD, Cancer, CVA, ARF, Chemo, Hep., AIDS, mental health diagnosis, sleep apnea, morbid obesity)? @ -none Was patient admitted / discharged? Hospital course, mention meds given and route, prescriptions, significant lab abnormalities, going to OR and other pertinent info. @ - 88 with dementia, patient has dementia COPD shortness of breath acute bronchitis patient has significant dementia unable to give history but will be admitted for further evaluation and management Admitted Undiagnosed new problem with uncertain prognosis? @ -no Drug Therapy requiring intensive monitoring for toxicity (Heparin, Nitro, Insulin, Cardizem)? @ -no Were any procedures done? @ -no Diagnosis/symptom? @ -Pneumonia COPD Acute, or Chronic, or Acute on Chronic? @ -Acute Uncomplicated (without systemic symptoms) or Complicated (systemic symptoms)? @ -Complicated Side effects of treatment? @ -no Exacerbation, Progression, or Severe Exacerbation? @ -exacerbation Poses a threat to life or bodily function? How? (Chest pain, [place], [place], pneumonia, PE, COPD, DKA, ARF, appy, cholecystitis, CVA, Diverticulitis, Homicidal, Suicidal, threat to staff... and all critical care pts) @ -yes extremes of age Reevaluation #5: Differential Dyspnea: Coronary syndrome, arrhythmia, tamponade, asthma, COPD, pulmonary embolism, pneumonia, pneumothorax, pulmonary effusion, anaphylaxis, diabetic ketoacidosis, flailed chest, pulmonary contusion, diaphragmatic rupture, anemia, neuromuscular, this is not meant to be an all-inclusive list. - Consultations Consultation #1: Spoke with admitting physicians who agreed to admit this patient Medical Decision Making - Medical Decision Making 88 with dementia, patient has dementia COPD shortness of breath acute bronchitis patient has significant dementia unable to give history but will be admitted for further evaluation and management - Lab Data Result diagrams: 04/27/24 05:44 04/27/24 05:44 Lab Results 04/23/24 04/23/24 04/23/24 Range/Units 18:53 18:53 18:53 WBC 11.0 H (3.8-10.6) k/uL RBC 4.13 L (4.30-5.90) m/uL Hgb 13.0 (13.0-17.5) gm/dL Hct 40.0 (39.0-53.0) % MCV 96.8 (80.0-100.0) fL MCH 31.5 (25.0-35.0) pg MCHC 32.5 (31.0-37.0) g/dL RDW 12.6 (11.5-15.5) % Plt Count 158 (150-450) k/uL MPV 8.4 Neutrophils % 80 % Lymphocytes % 13 % Monocytes % 4 % Eosinophils % 2 % Basophils % 0 % Neutrophils # 8.8 H (1.3-7.7) k/uL Lymphocytes # 1.4 (1.0-4.8) k/uL Monocytes # 0.5 (0-1.0) k/uL Eosinophils # 0.2 (0-0.7) k/uL Basophils # 0.0 (0-0.2) k/uL PT 10.9 (10.0-12.5) sec INR 1.0 (<1.2) APTT 23.4 (22.0-30.0) sec Sodium 135 L (137-145) mmol/L Potassium 4.4 (3.5-5.1) mmol/L Chloride 100 (98-107) mmol/L Carbon Dioxide 27 (22-30) mmol/L Anion Gap 8 mmol/L BUN 27 H (9-20) mg/dL Creatinine 1.24 (0.66-1.25) mg/dL Est GFR (CKD-EPI)AfAm 60 (>60 ml/min/1.73 sqM) Est GFR (CKD-EPI)NonAf 52 (>60 ml/min/1.73 sqM) Glucose 195 H (74-99) mg/dL Plasma Lactic Acid Que (0.7-2.0) mmol/L Calcium 9.6 (8.4-10.2) mg/dL Magnesium 2.3 (1.6-2.3) mg/dL Total Bilirubin 0.5 (0.2-1.3) mg/dL AST 26 (17-59) U/L ALT 15 (4-49) U/L Alkaline Phosphatase 73 (38-126) U/L Troponin I (0.000-0.034) ng/mL NT-Pro-B Natriuret Pep 324 pg/mL Total Protein 6.4 (6.3-8.2) g/dL Albumin 4.0 (3.5-5.0) g/dL 04/23/24 04/23/24 Range/Units 18:53 18:53 WBC (3.8-10.6) k/uL RBC (4.30-5.90) m/uL Hgb (13.0-17.5) gm/dL Hct (39.0-53.0) % MCV (80.0-100.0) fL MCH (25.0-35.0) pg MCHC (31.0-37.0) g/dL RDW (11.5-15.5) % Plt Count (150-450) k/uL MPV Neutrophils % % Lymphocytes % % Monocytes % % Eosinophils % % Basophils % % Neutrophils # (1.3-7.7) k/uL Lymphocytes # (1.0-4.8) k/uL Monocytes # (0-1.0) k/uL Eosinophils # (0-0.7) k/uL Basophils # (0-0.2) k/uL PT (10.0-12.5) sec INR (<1.2) APTT (22.0-30.0) sec Sodium (137-145) mmol/L Potassium (3.5-5.1) mmol/L Chloride (98-107) mmol/L Carbon Dioxide (22-30) mmol/L Anion Gap mmol/L BUN (9-20) mg/dL Creatinine (0.66-1.25) mg/dL Est GFR (CKD-EPI)AfAm (>60 ml/min/1.73 sqM) Est GFR (CKD-EPI)NonAf (>60 ml/min/1.73 sqM) Glucose (74-99) mg/dL Plasma Lactic Acid Que 1.9 (0.7-2.0) mmol/L Calcium (8.4-10.2) mg/dL Magnesium (1.6-2.3) mg/dL Total Bilirubin (0.2-1.3) mg/dL AST (17-59) U/L ALT (4-49) U/L Alkaline Phosphatase (38-126) U/L Troponin I <0.012 (0.000-0.034) ng/mL NT-Pro-B Natriuret Pep pg/mL Total Protein (6.3-8.2) g/dL Albumin (3.5-5.0) g/dL - EKG Data -: EKG Interpreted by Me (EKG is sinus 89 [place] 240 QRS 93 QTc 436) - Radiology Data Radiology results: report reviewed (Chest x-ray is negative for acute disease), image reviewed Disposition Clinical Impression: Dyspnea, Bronchitis, Aspiration pneumonia, Dementia Disposition: ADMITTED IP TO THIS [facility] Condition: Fair Is patient prescribed a controlled substance at d/c from ED?: No Time of Disposition: 19:20
--- NOTE | 2024-04-23 19:37 | XR ---
EXAMINATION TYPE: XR chest 1V portable DATE OF EXAM: 04/23/2024 COMPARISON: 04/16/2024 CLINICAL INDICATION: Male, 88 years old with history of KAREN; TECHNIQUE: Single frontal view of the chest is obtained. FINDINGS: Scattered senescent parenchymal change. There is no focal air space opacity, pleural effus ion, or pneumothorax seen. The cardiac silhouette size is within normal limits. The osseous struct ures are intact. IMPRESSION: No acute process. [facility], , 04/23/2024 7:35 PM
[2024-04-23 19:42] LABS: Partial Thromboplastin Time 23.4 sec (22.0-30.0); Prothrombin Time 10.9 sec (10.0-12.5)
[2024-04-23] MEDS ORDERED: PNEUMONIA PROTOCOL UTILIZED 1 EACH MISC PO PRN (19:43)
[2024-04-23 19:56] LABS: Basophils % (A) 0 %; Eosinophils # (A) 0.2 k/uL (0-0.7); Eosinophils % (A) 2 %; Lymphocytes # (A) 1.4 k/uL (1.0-4.8); Lymphocytes % (A) 13 %; MCH 31.5 pg (25.0-35.0); MCHC 32.5 g/dL (31.0-37.0); MCV 96.8 fL (80.0-100.0); Mean Platelet Volume 8.4; Monocytes # (A) 0.5 k/uL (0-1.0); Monocytes % (A) 4 %; Neutrophils # (A) 8.8 k/uL (1.3-7.7); Neutrophils % (A) 80 %; Platelet Count 158 k/uL (150-450); RBC 4.13 m/uL (4.30-5.90); RDW 12.6 % (11.5-15.5)
[2024-04-23] MEDS: SODIUM CHLORIDE 0.9% 1,000 ML IV STA (20:20)
[2024-04-23] MEDS: IPRATROPIUM-ALBUTEROL 3 ML NEB INHALATION STA ×2 (20:26→20:27)
[2024-04-23] MEDS: ALBUTEROL NEBULIZED 2.5 MG/3 ML INHALATION SCH (20:26)
[2024-04-23] MEDS: SODIUM CHLORIDE 0.9% 1,000 ML IV SCH (20:30)
--- NOTE | 2024-04-23 21:36 | P.HPIM ---
History of Present Illness H&P Date: 04/23/24 Chief Complaint: Aspiration pneumonia Patient is a 88-year-old male with past medical history of insulin-dependent diabetes mellitus, hypertension, hypothyroidism, history of prostate cancer in 2002 currently in remission, history of stroke and dementia presented to the emergency department with shortness of breath possible secondary to aspiration activity. This is a transfer patient from [facility]. Patient's family reported that around 12:30 PM today while patient was having a sandwich, he accidentally choked and aspirated part of the food he was eating. Patient was also reportedly taking several medication pills around that time so it may have been the pills that caused the patient to aspirate. The patient immediately began coughing excessively. Per ED note from [facility], patient's family tried to do a Heimlich maneuver on him and stated that he did throw up slightly. Patient has never aspirated before prior to this incident. Patient and his family members then visited a local urgent care clinic and was told to go to the emergency department at [facility] because the patient had a large amount of coughing and stated that he was having difficulty breathing. Patient reports shortness of breath immediately after the incident, and noticed that he has become more congested this afternoon. Patient currently endorses shortness of breath, coughing, and congestion. Patient denies fever, chills, chest pain, nausea, vomiting, diarrhea, constipation, weakness or numbness in upper or lower extremities, no tingling sensation. ED documentation reviewed. In the ED patient was treated with DuoNeb 3 mL x 2, Rocephin 2 g IV x 1, a bolus of normal saline. Vitals on admission temperature 98.6, pulse rate 91, respiratory rate 22, blood pressure 148/96, O2 saturation of 96% on room air CXR shows no acute process. Labs on admission show WBC 11, hemoglobin 13, hematocrit 40, platelet 158, PT 10.9, PTT 23.4, INR 1.0, sodium 135, potassium 4.4, chloride 100, carbon dioxide 27, BUN 27, creatinine 1.24, glucose 195, lactic acid 1.9, troponin less than 0.012, BNP 324 Review of systems: Pertinent positives and negatives as discussed in HPI, a complete review of systems was performed and all other systems are negative. PMH: Insulin-dependent diabetes mellitus, hypertension, hypothyroidism, history of prostate cancer in 2002 currently in remission, history of stroke and dementia PSH: Appendectomy, cholecystectomy, prostate surgery FMH: Father has a history of colon cancer Allergies: Iodinated contrast media Social history: Tobacco: Never smoker Alcohol: No alcohol use Recreational drugs: No recreational drug use Travel: No recent travel history Sick contacts: No recent sick contacts Physical examination: Vital signs reviewed General: nontoxic, no distress, appears at stated age, well-appearing Derm: warm, dry, intact Head: atraumatic, normocephalic, symmetric Eyes: EOMI, anicteric sclera Mouth: no lip lesion, mucus membranes moist, no obvious foreign objects in the oropharynx. Cardiovascular: S1 S2 reg, no murmur Lungs: Rhonchi in the right lung field, no wheezing/stridor/crackles, no accessory muscle use Abdominal: soft, non-tender to palpation, nondistended Extremities: No cyanosis, clubbing, or pedal edema. Neuro: Alert and awake but oriented to self and place only, not oriented to time , Gross neurological examination did not reveal any focal deficits. Cranial nerves II to XII grossly intact. Intact sensation in upper and lower extremity bilaterally. Intact muscle strength in upper and lower extremity bilaterally 5 out of 5. Psych: appropriate affect Assessment/Plan: 88-year-old male with past medical history of diabetes mellitus, hypertension, thyroid disorder, history of prostate cancer in 2002 currently in remission presented to the emergency department with shortness of breath possible aspiration activity. Patient will be admitted to inpatient medicine service. Active: #. Aspiration pneumonia Chest x-ray shows no acute process Obtain morning CBC Continue with ceftriaxone 1 g IV q24h Continue with metronidazole 500 mg IV q8h Continue normal saline at 75 cc an hour Obtain speech consult NPO for now ID consulted by ER #. Leukocytosis Likely due to above stated pneumonia C/w management including abxs #. Hyponatremia, mild C/w NS 75 ml/hr and monitor BMP Chronic: #. Diabetes mellitus Hold home diabetes oral medications Initiate low-dose sliding scale insulin #. Hypothyroidism Resume home levothyroxine 75 mcg daily #. Dementia Resume home memantine 10 mg twice daily #. History of stroke Resume home aspirin 81 mg daily #. Hyperlipidemia Continue Lipitor 10 mg daily F: No restrictions E: Replete as needed N: Heart healthy diet A: Ambulatory DVT prophylaxis: Lovenox 40 mg subcu daily The patient is admitted with an anticipated less than 2 midnight stay for evaluation of aspiration pneumonia CODE STATUS: No code Discussed with: Patient Anticipated discharge place: Home Past Medical History Past Medical History: Cancer, Diabetes Mellitus, Hypertension, Thyroid Disorder Additional Past Medical History / Comment(s): hx. prostate cancer 2002, hx. colon polyps, kidney stones History of Any Multi-Drug Resistant Organisms: None Reported Past Surgical History: Appendectomy, Cholecystectomy, Prostate Surgery Additional Past Surgical History / Comment(s): prostatectomy Past Anesthesia/Blood Transfusion Reactions: No Reported Reaction Past Psychological History: No Psychological Hx Reported Smoking Status: Never smoker Past Alcohol Use History: None Reported Past Drug Use History: None Reported - Past Family History Father Family Medical History: Cancer Additional Family Medical History / Comment(s): colon Medications and Allergies Home Medications Medication Instructions Recorded Confirmed Type Aspirin 81 mg PO DAILY 10/19/16 04/23/24 History Multivitamin [Men's Multi-Vitamin] 1 tab PO DAILY 10/19/16 04/23/24 History metFORMIN HCL [Metformin HCl] 500 mg PO BID 10/19/16 04/23/24 History Cyanocobalamin (Vitamin B-12) 1,000 mcg PO DAILY 08/14/22 04/23/24 History [Vitamin B-12] Rosuvastatin Calcium 5 mg PO DAILY 08/14/22 04/23/24 History Vit C/E/Zn/Coppr/Lutein/Zeaxan 1 cap PO BID 08/14/22 04/23/24 History [Preservision Areds 2 Softgel] Empagliflozin [Jardiance] 10 mg PO DAILY 04/23/24 04/23/24 History Ferrous Sulfate [Feosol] 325 mg PO DAILY 04/23/24 04/23/24 History Insulin Degludec [Tresiba 10 units SQ DAILY 04/23/24 04/23/24 History Flextouch U-100 Pen] Levothyroxine Sodium [Synthroid] 75 mcg PO DAILY 04/23/24 04/23/24 History Memantine [Namenda] 10 mg PO BID 04/23/24 04/23/24 History Nystatin [Nystop] 1 applic TOPICAL BID 04/23/24 04/23/24 History Psyllium Husk (with Sugar) 1 tbsp PO TID 04/23/24 04/23/24 History [Metamucil Powder] Vitamin D3(Unknown Dose) 1 tab PO DAILY 04/23/24 04/23/24 History Allergies Allergy/AdvReac Type Severity Reaction Status Date / Time Iodinated Contrast Media Allergy Rash/Hives Verified 04/23/24 19:28 [Iodinated Contrast- Oral and IV Dye] Physical Exam Vitals: Vital Signs Temp Pulse Resp BP Pulse Ox 04/23/24 18:38 98.6 F 91 22 148/96 96 Intake and Output 04/23/24 04/23/24 04/23/24 06:59 14:59 22:59 Other: Weight 70.307 kg Results CBC & Chem 7: 04/23/24 18:53 04/23/24 18:53 Labs: Abnormal Lab Results - Last 24 Hours (Table) 04/23/24 04/23/24 Range/Units 18:53 18:53 WBC 11.0 H (3.8-10.6) k/uL RBC 4.13 L (4.30-5.90) m/uL Neutrophils # 8.8 H (1.3-7.7) k/uL Sodium 135 L (137-145) mmol/L BUN 27 H (9-20) mg/dL Glucose 195 H (74-99) mg/dL
[2024-04-23] MEDS: AZITHROMYCIN 500 MG in SODIUM CHLORIDE 0.9% 250 ML IVPB STA (21:52)
[2024-04-23] MEDS ORDERED: DEXTROSE 50% SYRINGE 50 ML IVP PRN ×2 (22:30)
[2024-04-24] MEDS: INSULIN ASPART (NovoLOG) 100 UNIT/ML VIAL SQ SCH (00:24)
[2024-04-24] MEDS: metroNIDAZOLE-NS PMX 500 MG in SALINE 1 100ML.BAG IVPB SCH (01:13)
[2024-04-24] MEDS: LEVOTHYROXINE 75 MCG TAB PO SCH (06:01)
[2024-04-24 06:06] LABS: Glucose,Whole Blood 144 mg/dL (70-110)
--- NOTE | 2024-04-24 08:17 | XR ---
EXAMINATION TYPE: XR chest 1V DATE OF EXAM: 04/24/2024 6:43 AM COMPARISON: Chest radiograph from one day prior. CLINICAL INDICATION: Male, 88 years old with history of pneumonia; [facility] TECHNIQUE: XR chest 1V Frontal view of the chest. FINDINGS: Lungs/Pleura: There is no evidence of pleural effusion, focal consolidation, or pneumothorax. Pulmonary vascularity: Unremarkable. Heart/mediastinum: Cardiomediastinal silhouette is unremarkable. Musculoskeletal: No acute osseous pathology. IMPRESSION: No acute cardiopulmonary disease/process. [facility], , 04/24/2024 8:15 AM
[2024-04-24 08:28] LABS: Glucose,Whole Blood 177 mg/dL (70-110)
[2024-04-24] MEDS: ENOXAPARIN 40 MG/0.4 ML SYRINGE SQ SCH (08:49)
[2024-04-24 08:51] LABS: Basophils # (A) 0.08 X 10*3/uL (0.00-0.10); Basophils % (A) 0.7 %; Eosinophils # (A) 0.08 X 10*3/uL (0.04-0.35); Eosinophils % (A) 0.7 %; HCT 37.1 % (39.6-50.0); HGB 12.2 g/dL (13.0-17.0); Lymphocytes # (A) 1.18 X 10*3/uL (0.90-5.00); MCHC 32.9 g/dL (32.0-37.0); MCV 94.2 FL (80.0-97.0); Monocytes # (A) 0.86 X 10*3/uL (0.20-1.00); Monocytes % (A) 7.3 %; NRBC Per 100 WBC 0 X 10*3/uL (0.00-0.01); Neutrophils # (A) 9.54 X 10*3/uL (1.80-7.70); Neutrophils % (A) 80.9 %; Platelet Count 177 X 10*3/uL (140-440); RBC 3.94 X 10*6/uL (4.40-5.60); RDW 13.2 % (11.5-14.5); WBC 11.79 X 10*3/uL (4.50-10.00)
[2024-04-24 08:55] LABS: BUN/Creat Ratio 18.42 Ratio (12.00-20.00); Blood Urea Nitrogen 22.1 mg/dL (9.0-27.0); Carbon Dioxide 21.8 mmol/L (21.6-31.8); Chloride 105 mmol/L (96-109); Glucose 132 mg/dL (70-110); Potassium 4.1 mmol/L (3.5-5.5); Sodium 141 mmol/L (135-145)
[2024-04-24] MEDS: MEMANTINE 10 MG TAB PO SCH (08:56)
[2024-04-24] MEDS: ASPIRIN 81 MG PO SCH (08:56)
[2024-04-24] MEDS: ATORVASTATIN 10 MG TAB PO SCH (08:56)
[2024-04-24] MEDS ORDERED: AZITHROMYCIN 500 MG in SODIUM CHLORIDE 0.9% 250 ML IVPB SCH (09:00)
[2024-04-24] MEDS: FERROUS SULFATE 325 MG TAB PO SCH (09:06)
[2024-04-24 12:16] LABS: Glucose,Whole Blood 134 mg/dL (70-110)
--- NOTE | 2024-04-24 14:33 | P.HPIM ---
History of Present Illness H&P Date: 04/24/24 Chris Rosenthal, presented to the ER with concerns ofcough and shortness of breath. According to family at bedside patient was eating when he started to cough and felt like something was stuck. Patient went to the urgent care which prompted them to go to hospital and patient was transferred here for further evaluation patient has a past medical history of diabetes mellitus, hypertension, hypothyroidism, prostate cancer, stroke and dementia. Chest x-ray completed showing no acute cardiopulmonary disease. Lab work completed showing white blood cell 11.79, creatinine 1.2, bun 22.1. Current vital signs temp 98.5, heart 84, respiratory rate 18, blood pressure 127/65 with a pulse ox of 96% on 2 L.at this time patient will be admitted and started on IV antibiotics infectious disease service is consulted. Speech services also consulted to assess swallow. Patient denies chest pain or shortness of breath. Patient denies nausea vomiting or diarrhea. Patient denies any urinary burning or f requency Review of Systems please refer to HPI otherwise unremarkable Past Medical History Past Medical History: Cancer, Diabetes Mellitus, Hypertension, Thyroid Disorder Additional Past Medical History / Comment(s): hx. prostate cancer 2002, hx. colon polyps, kidney stones History of Any Multi-Drug Resistant Organisms: None Reported Past Surgical History: Appendectomy, Cholecystectomy, Prostate Surgery Additional Past Surgical History / Comment(s): prostatectomy Past Anesthesia/Blood Transfusion Reactions: No Reported Reaction Past Psychological History: No Psychological Hx Reported Smoking Status: Never smoker Past Alcohol Use History: None Reported Past Drug Use History: None Reported - Past Family History Father Family Medical History: Cancer Additional Family Medical History / Comment(s): colon Medications and Allergies Home Medications Medication Instructions Recorded Confirmed Type Aspirin 81 mg PO DAILY 10/19/16 04/23/24 History Multivitamin [Men's Multi-Vitamin] 1 tab PO DAILY 10/19/16 04/23/24 History metFORMIN HCL [Metformin HCl] 500 mg PO BID 10/19/16 04/23/24 History Cyanocobalamin (Vitamin B-12) 1,000 mcg PO DAILY 08/14/22 04/23/24 History [Vitamin B-12] Rosuvastatin Calcium 5 mg PO DAILY 08/14/22 04/23/24 History Vit C/E/Zn/Coppr/Lutein/Zeaxan 1 cap PO BID 08/14/22 04/23/24 History [Preservision Areds 2 Softgel] Empagliflozin [Jardiance] 10 mg PO DAILY 04/23/24 04/23/24 History Ferrous Sulfate [Feosol] 325 mg PO DAILY 04/23/24 04/23/24 History Insulin Degludec [Tresiba 10 units SQ DAILY 04/23/24 04/23/24 History Flextouch U-100 Pen] Levothyroxine Sodium [Synthroid] 75 mcg PO DAILY 04/23/24 04/23/24 History Memantine [Namenda] 10 mg PO BID 04/23/24 04/23/24 History Nystatin [Nystop] 1 applic TOPICAL BID 04/23/24 04/23/24 History Psyllium Husk (with Sugar) 1 tbsp PO TID 04/23/24 04/23/24 History [Metamucil Powder] Vitamin D3(Unknown Dose) 1 tab PO DAILY 04/23/24 04/23/24 History Allergies Allergy/AdvReac Type Severity Reaction Status Date / Time Iodinated Contrast Media Allergy Rash/Hives Verified 04/23/24 19:28 [Iodinated Contrast- Oral and IV Dye] Physical Exam Vitals: Vital Signs Temp Pulse Resp BP Pulse Ox 04/24/24 05:58 99.1 F 96 17 145/84 93 L 04/24/24 03:11 98.5 F 90 17 146/87 95 04/24/24 02:27 90 18 124/72 94 L 04/24/24 01:14 96 18 137/90 90 L 04/24/24 00:27 100 18 126/80 04/23/24 21:41 89 18 126/81 97 04/23/24 20:41 87 04/23/24 20:30 88 04/23/24 18:38 98.6 F 91 22 148/96 96 Intake and Output 04/23/24 04/23/24 04/24/24 14:59 22:59 06:59 Other: Weight 70.307 kg Head normocephalic Neck supple Lungs clear to auscultation bilaterally no wheezing or crackles Heart regular rate and rhythm S1-S2, no rub or gallop Abdomen is soft nontender nondistended positive bowel sounds no hepatosplenomegaly Extremities no edema Neuro alert and orientated to 3. Intermittently confused Results CBC & Chem 7: 04/24/24 04:02 04/24/24 04:02 Labs: Abnormal Lab Results - Last 24 Hours (Table) 04/23/24 04/23/24 04/24/24 Range/Units 18:53 18:53 06:06 WBC 11.0 H (3.8-10.6) k/uL RBC 4.13 L (4.30-5.90) m/uL Neutrophils # 8.8 H (1.3-7.7) k/uL Sodium 135 L (137-145) mmol/L BUN 27 H (9-20) mg/dL Glucose 195 H (74-99) mg/dL POC Glucose (mg/dL) 144 H (70-110) mg/dL Assessment and Plan Assessment: 1. Concerns of aspiration pneumonia 2. Diabetes mellitus type 2 3. History of dementia 4. History of stroke 5. History of hyperlipidemia 6. History of prostate cancer DVT prophylaxis Lovenox. GI prophylaxis Protonix Continue IV antibiotics at this time Infectious disease service is consulted Speech service is consulted to assess swallow Repeat labs ordered in a.m.
[2024-04-24 18:41] LABS: Glucose,Whole Blood 155 mg/dL (70-110)
[2024-04-24 20:54] LABS: Glucose,Whole Blood 267 mg/dL (70-110)
[2024-04-25 06:25] LABS: Glucose,Whole Blood 187 mg/dL (70-110)
[2024-04-25 09:12] LABS: Basophils # (A) 0.08 X 10*3/uL (0.00-0.10); Basophils % (A) 0.8 %; Eosinophils # (A) 0.25 X 10*3/uL (0.04-0.35); Eosinophils % (A) 2.4 %; HGB 11.7 g/dL (13.0-17.0); Lymphocytes # (A) 1.43 X 10*3/uL (0.90-5.00); Lymphocytes % (A) 13.6 %; MCH 30.4 pg (27.0-32.0); MCHC 32.5 g/dL (32.0-37.0); MCV 93.5 FL (80.0-97.0); Mean Platelet Volume 11.9 FL (9.5-12.2); Monocytes # (A) 0.94 X 10*3/uL (0.20-1.00); NRBC Per 100 WBC 0 X 10*3/uL (0.00-0.01); Neutrophils # (A) 7.76 X 10*3/uL (1.80-7.70); Neutrophils % (A) 73.8 %; Platelet Count 172 X 10*3/uL (140-440); RBC 3.85 X 10*6/uL (4.40-5.60); RDW 13.6 % (11.5-14.5)
[2024-04-25] MEDS: PANTOPRAZOLE 40 MG TABLET PO SCH (09:26)
[2024-04-25 09:30] LABS: ALT 16 U/L (10-49); AST 32 U/L (14-35); Albumin 3.7 g/dL (3.8-4.9); Albumin/Globulin Ratio 1.68 Ratio (1.60-3.17); Alkaline Phosphatase 64 U/L (41-126); BUN/Creat Ratio 15.54 Ratio (12.00-20.00); Blood Urea Nitrogen 20.2 mg/dL (9.0-27.0); Calcium 8.9 mg/dL (8.7-10.3); Carbon Dioxide 23.7 mmol/L (21.6-31.8); Chloride 107 mmol/L (96-109); Globulin 2.2 g/dL (1.6-3.3); Glucose 123 mg/dL (70-110); Potassium 4.4 mmol/L (3.5-5.5); Sodium 141 mmol/L (135-145); Total Bilirubin 0.4 mg/dL (0.3-1.2); Total Protein 5.9 g/dL (6.2-8.2)
--- NOTE | 2024-04-25 09:35 | P.CONS ---
History of Present Illness - Reason for Consult Consult date: 04/24/24 Pneumonia Requesting physician: Javier Serna - Chief Complaint Shortness of breath and cough x 1 day - History of Present Illness Patient is a 88-year-old male with a past medical history significant for diabetes mellitus hypertension hypothyroidism history of prostate cancer status post prostatectomy patient has been brought into the hospital for eval uation of increasing shortness of breath and possible aspiration activity apparently the patient started having left an episode of severe coughing choking after he eating a meal and also noted to have increasing shortness of breath with the symptoms the patient was evaluated on presentation to the hospital the patient was afebrile and did have a low-grade fever of 99.1 F patient was not tachycardic or hypotensive he was hypoxic with O2 sats of 90% currently on 2 L nasal cannula oxygen patient did have a white count of 11.79 with a left shift creatinine is 1.2 electrolyte has been normal liver enzymes normal blood culture obtained which are currently pending patient did have a chest x-ray no acute process/patient was started on Rocephin Flagyl has been added infectious disease was consulted for pneumonia Review of Systems Positive point and negatives has been mentioned in the HPI, complete review of systems was performed and all other systems are negative Past Medical History Past Medical History: Cancer, Diabetes Mellitus, Hypertension, Thyroid Disorder Additional Past Medical History / Comment(s): hx. prostate cancer 2002, hx. colon polyps, kidney stones History of Any Multi-Drug Resistant Organisms: None Reported Past Surgical History: Appendectomy, Cholecystectomy, Prostate Surgery Additional Past Surgical History / Comment(s): prostatectomy Past Anesthesia/Blood Transfusion Reactions: No Reported Reaction Past Psychological History: No Psychological Hx Reported Smoking Status: Never smoker Past Alcohol Use History: None Reported Past Drug Use History: None Reported - Past Family History Father Family Medical History: Cancer Additional Family Medical History / Comment(s): colon Medications and Allergies Home Medications Medication Instructions Recorded Confirmed Type Aspirin 81 mg PO DAILY 10/19/16 04/23/24 History Multivitamin [Men's Multi-Vitamin] 1 tab PO DAILY 10/19/16 04/23/24 History metFORMIN HCL [Metformin HCl] 500 mg PO BID 10/19/16 04/23/24 History Cyanocobalamin (Vitamin B-12) 1,000 mcg PO DAILY 08/14/22 04/23/24 History [Vitamin B-12] Rosuvastatin Calcium 5 mg PO DAILY 08/14/22 04/23/24 History Vit C/E/Zn/Coppr/Lutein/Zeaxan 1 cap PO BID 08/14/22 04/23/24 History [Preservision Areds 2 Softgel] Empagliflozin [Jardiance] 10 mg PO DAILY 04/23/24 04/23/24 History Ferrous Sulfate [Feosol] 325 mg PO DAILY 04/23/24 04/23/24 History Insulin Degludec [Tresiba 10 units SQ DAILY 04/23/24 04/23/24 History Flextouch U-100 Pen] Levothyroxine Sodium [Synthroid] 75 mcg PO DAILY 04/23/24 04/23/24 History Memantine [Namenda] 10 mg PO BID 04/23/24 04/23/24 History Nystatin [Nystop] 1 applic TOPICAL BID 04/23/24 04/23/24 History Psyllium Husk (with Sugar) 1 tbsp PO TID 04/23/24 04/23/24 History [Metamucil Powder] Vitamin D3(Unknown Dose) 1 tab PO DAILY 04/23/24 04/23/24 History Allergies Allergy/AdvReac Type Severity Reaction Status Date / Time Iodinated Contrast Media Allergy Rash/Hives Verified 04/23/24 19:28 [Iodinated Contrast- Oral and IV Dye] Physical Exam Vitals: Vital Signs Temp Pulse Resp BP Pulse Ox 04/24/24 09:04 78 18 157/86 96 04/24/24 08:35 95 04/24/24 07:32 98.3 F 98 22 149/85 96 04/24/24 05:58 99.1 F 96 17 145/84 93 L 04/24/24 03:11 98.5 F 90 17 146/87 95 04/24/24 02:27 90 18 124/72 94 L 04/24/24 01:14 96 18 137/90 90 L 04/24/24 00:27 100 18 126/80 04/23/24 21:41 89 18 126/81 97 04/23/24 20:41 87 04/23/24 20:30 88 04/23/24 18:38 98.6 F 91 22 148/96 96 Intake and Output 04/23/24 04/24/24 04/24/24 22:59 06:59 14:59 Other: Weight 70.307 kg GENERAL DESCRIPTION: Elderly male lying in bed, no distress. No tachypnea or accessory muscle of respiration use. HEENT: Shows Pallor , no scleral icterus. Oral mucous membrane is dry. No pharyngeal erythema or thrush NECK: Trachea central, no thyromegaly. LUNGS: Unlabored breathing. Decreased breath sound at the base. HEART: S1, S2, regular rate and rhythm. No loud murmur ABDOMEN: Soft, no tenderness , guarding or rigidity, no organomegaly EXTREMITIES: No edema of feet. SKIN: No rash, no masses palpable. NEUROLOGICAL: The patient is awake, alert, mood and affect normal. Results CBC & Chem 7: 04/25/24 03:08 04/25/24 03:08 Labs: Abnormal Lab Results - Last 24 Hours (Table) 04/23/24 04/23/24 04/24/24 Range/Units 18:53 18:53 04:02 WBC 11.0 H 11.79 H (3.8-10.6) k/uL RBC 4.13 L 3.94 L (4.30-5.90) m/uL Hgb 12.2 L (13.0-17.0) g/dL Hct 37.1 L (39.6-50.0) % Immature Gran # 0.05 H (0.00-0.04) X 10*3/uL Neutrophils # 8.8 H 9.54 H (1.3-7.7) k/uL Sodium 135 L (137-145) mmol/L Anion Gap (4.00-12.00) mmol/L BUN 27 H (9-20) mg/dL Est GFR (CKD-EPI) (>=60) Glucose 195 H (74-99) mg/dL POC Glucose (mg/dL) (70-110) mg/dL 04/24/24 04/24/24 04/24/24 Range/Units 04:02 06:06 08:26 WBC (3.8-10.6) k/uL RBC (4.30-5.90) m/uL Hgb (13.0-17.0) g/dL Hct (39.6-50.0) % Immature Gran # (0.00-0.04) X 10*3/uL Neutrophils # (1.3-7.7) k/uL Sodium (137-145) mmol/L Anion Gap 14.20 H (4.00-12.00) mmol/L BUN (9-20) mg/dL Est GFR (CKD-EPI) 58 L (>=60) Glucose 132 H (74-99) mg/dL POC Glucose (mg/dL) 144 H 177 H (70-110) mg/dL Assessment and Plan (1) Aspiration pneumonitis Current Visit: Yes Status: Acute Code(s): J69.0 - PNEUMONITIS DUE TO INHALATION OF FOOD AND VOMIT SNOMED Code(s): 930461499 (2) Leukocytosis Current Visit: Yes Status: Acute Code(s): D72.829 - ELEVATED WHITE BLOOD CELL COUNT, UNSPECIFIED SNOMED Code(s): 710805203 Plan: 1patient presented to hospital with increasing shortness of breath and cough symptoms apparently started after he did have a meal concerning for possible choking/aspiration etiology 2-leukocytosis likely due to aspiration pneumonitis 3-patient would benefit from speech pathology evaluation for swallowing and aspiration precautions 4-try to obtain sputum for Gram stain culture 5-continue with Rocephin and Flagyl while waiting for the workup to be completed We will follow on clinical condition and cultures to further adjust medication if needed Thank you for this consultation we will follow the patient along with you Dictation was produced using [employer] dictation software. please excuse any grammatical, word or spelling errors. Time with Patient: Greater than 30
--- NOTE | 2024-04-25 09:53 | P.PN ---
Subjective Progress Note Date: 04/25/24 Chris Rosenthal, presented to the ER with concerns ofcough and shortness of breath. According to family at bedside patient was eating when he started to cough and felt like something was stuck. Patient went to the urgent care which prompted them to go to hospital and patient was transferred here for further evaluation patient has a past medical history of diabetes mellitus, hypertension, hypothyroidism, prostate cancer, stroke and dementia. Chest x-ray completed showing no acute cardiopulmonary disease. Lab work completed showing white blood cell 11.79, creatinine 1.2, bun 22.1. Current vital signs temp 98.5, heart 84, respiratory rate 18, blood pressure 127/65 with a pulse ox of 96% on 2 L.at this time patient will be admitted and started on IV antibiotics infectious disease service is consulted. Speech services also consulted to assess swallow. Patient denies chest pain or shortness of breath. Patient denies nausea vomiting or diarrhea. Patient denies any urinary burning or frequency On 05/03/2024 patient is alert and oriented x 3 currently resting in bed. Patient remains on IV antibiotics Rocephin and Flagyl. Patient was eval by speech services and diet make and recommendations of dysphagia level 3 chopped diet one-to-one supervision with aspiration precautions. White blood cell 10.5. Current vital signs temp 98.6, heart rate 77, respiratory rate 17, blood pressure 153/88 with a pulse ox of 96% on 2 L. Patient denies chest pain or shortness of breath. Patient denies nausea vomiting or diarrhea. Patient denies any urinary burning or frequency Objective - Vital Signs Vital signs: Vital Signs Temp 98.3 F 04/25/24 01:14 Pulse 97 04/25/24 01:14 Resp 14 04/25/24 01:14 BP 162/85 04/25/24 01:14 Pulse Ox 95 04/25/24 01:14 FiO2 Intake & Output 04/24/24 04/25/24 04/25/24 18:59 06:59 18:59 Weight 70.307 kg Other: # Voids 1 1 - Exam Head normocephalic Neck supple Lungs clear to auscultation bilaterally no wheezing or crackles Heart regular rate and rhythm S1-S2, no rub or gallop Abdomen is soft nontender nondistended positive bowel sounds no hepatosplenomegaly Extremities no edema Neuro alert and orientated to 3. Intermittently confused - Labs CBC & Chem 7: 04/25/24 03:08 04/25/24 03:08 Labs: Abnormal Lab Results - Last 24 Hours (Table) 04/24/24 04/24/24 04/24/24 Range/Units 04:02 04:02 04:02 WBC 11.79 H (4.50-10.00) X 10*3/uL RBC 3.94 L (4.40-5.60) X 10*6/uL Hgb 12.2 L (13.0-17.0) g/dL Hct 37.1 L (39.6-50.0) % Immature Gran # 0.05 H (0.00-0.04) X 10*3/uL Neutrophils # 9.54 H (1.80-7.70) X 10*3/uL Anion Gap 14.20 H (4.00-12.00) mmol/L Est GFR (CKD-EPI) 58 L (>=60) Glucose 132 H (70-110) mg/dL POC Glucose (mg/dL) (70-110) mg/dL Hemoglobin A1c 8.2 H (<=6.0) % 04/24/24 04/24/24 04/24/24 Range/Units 08:26 12:15 18:40 WBC (4.50-10.00) X 10*3/uL RBC (4.40-5.60) X 10*6/uL Hgb (13.0-17.0) g/dL Hct (39.6-50.0) % Immature Gran # (0.00-0.04) X 10*3/uL Neutrophils # (1.80-7.70) X 10*3/uL Anion Gap (4.00-12.00) mmol/L Est GFR (CKD-EPI) (>=60) Glucose (70-110) mg/dL POC Glucose (mg/dL) 177 H 134 H 155 H (70-110) mg/dL Hemoglobin A1c (<=6.0) % 04/24/24 04/25/24 Range/Units 20:52 06:24 WBC (4.50-10.00) X 10*3/uL RBC (4.40-5.60) X 10*6/uL Hgb (13.0-17.0) g/dL Hct (39.6-50.0) % Immature Gran # (0.00-0.04) X 10*3/uL Neutrophils # (1.80-7.70) X 10*3/uL Anion Gap (4.00-12.00) mmol/L Est GFR (CKD-EPI) (>=60) Glucose (70-110) mg/dL POC Glucose (mg/dL) 267 H 187 H (70-110) mg/dL Hemoglobin A1c (<=6.0) % Microbiology - Last 24 Hours (Table) 04/23/24 20:13 Blood Culture - Preliminary Blood Assessment and Plan Assessment: 1. Concerns of aspiration pneumonia 2. Diabetes mellitus type 2 3. History of dementia 4. History of stroke 5. History of hyperlipidemia 6. History of prostate cancer DVT prophylaxis Lovenox. GI prophylaxis Protonix Continue IV antibiotics at this time Infectious disease service is consulted Speech service is consulted to assess swallow Repeat labs ordered in a.m.
[2024-04-25 10:55] LABS: Glucose,Whole Blood 175 mg/dL (70-110)
[2024-04-25 12:11] LABS: Glucose,Whole Blood 217 mg/dL (70-110)
[2024-04-25 16:46] LABS: Glucose,Whole Blood 260 mg/dL (70-110)
[2024-04-25 20:20] LABS: Glucose,Whole Blood 267 mg/dL (70-110)
[2024-04-26 06:48] LABS: Glucose,Whole Blood 203 mg/dL (70-110)
--- NOTE | 2024-04-26 09:38 | P.PN ---
Subjective Progress Note Date: 04/26/24 Chris Rosenthal, presented to the ER with concerns ofcough and shortness of breath. According to family at bedside patient was eating when he started to cough and felt like something was stuck. Patient went to the urgent care which prompted them to go to hospital and patient was transferred here for further evaluation patient has a past medical history of diabetes mellitus, hypertension, hypothyroidism, prostate cancer, stroke and dementia. Chest x-ray completed showing no acute cardiopulmonary disease. Lab work completed showing white blood cell 11.79, creatinine 1.2, bun 22.1. Current vital signs temp 98.5, heart 84, respiratory rate 18, blood pressure 127/65 with a pulse ox of 96% on 2 L.at this time patient will be admitted and started on IV antibiotics infectious disease service is consulted. Speech services also consulted to assess swallow. Patient denies chest pain or shortness of breath. Patient denies nausea vomiting or diarrhea. Patient denies any urinary burning or frequency On 05/03/2024 patient is alert and oriented x 3 currently resting in bed. Patient remains on IV antibiotics Rocephin and Flagyl. Patient was eval by speech services and diet make and recommendations of dysphagia level 3 chopped diet one-to-one supervision with aspiration precautions. White blood cell 10.5. Current vital signs temp 98.6, heart rate 77, respiratory rate 17, blood pressure 153/88 with a pulse ox of 96% on 2 L. Patient denies chest pain or shortness of breath. Patient denies nausea vomiting or diarrhea. Patient denies any urinary burning or frequency On 04/26/2024 patient is alert and oriented x 3 currently resting comfortably in bed. Patient remains on IV Rocephin and IV Flagyl awaiting cultures. Patient remains on dysphagia aspiration precaution diet. Patient denies chest pain or shortness of breath. Patient denies nausea vomiting or diarrhea. Patient adilia es any urinary burning or frequency Objective - Vital Signs Vital signs: Vital Signs Temp 97.6 F 04/26/24 07:40 Pulse 90 04/26/24 08:11 Resp 14 04/26/24 08:11 BP 163/86 04/26/24 07:40 Pulse Ox 91 L 04/26/24 08:00 FiO2 Intake & Output 04/25/24 04/26/24 04/26/24 18:59 06:59 18:59 Intake Total 440 Balance 440 Intake: Oral 440 Other: # Voids 4 1 - Exam Head normocephalic Neck supple Lungs clear to auscultation bilaterally no wheezing or crackles Heart regular rate and rhythm S1-S2, no rub or gallop Abdomen is soft nontender nondistended positive bowel sounds no hepatosplenomegaly Extremities no edema Neuro alert and orientated to 3. Intermittently confused - Labs CBC & Chem 7: 04/25/24 03:08 04/25/24 03:08 Labs: Abnormal Lab Results - Last 24 Hours (Table) 04/23/24 04/25/24 04/25/24 Range/Units 23:05 12:10 16:44 POC Glucose (mg/dL) 175 H 217 H 260 H (70-110) mg/dL 04/25/24 04/26/24 Range/Units 20:18 06:46 POC Glucose (mg/dL) 267 H 203 H (70-110) mg/dL Microbiology - Last 24 Hours (Table) 04/25/24 12:05 Gram Stain - Preliminary Sputum 04/23/24 20:13 Blood Culture - Preliminary Blood Assessment and Plan Assessment: 1. Concerns of aspiration pneumonia 2. Diabetes mellitus type 2 3. History of dementia 4. History of stroke 5. History of hyperlipidemia 6. History of prostate cancer DVT prophylaxis Lovenox. GI prophylaxis Protonix Continue IV antibiotics at this time Infectious disease service is consulted Speech service is consulted to assess swallow Repeat labs ordered in a.m.
[2024-04-26 10:59] LABS: Basophils # (A) 0.06 X 10*3/uL (0.00-0.10); Basophils % (A) 0.7 %; Eosinophils # (A) 0.42 X 10*3/uL (0.04-0.35); HCT 34.2 % (39.6-50.0); HGB 11.2 g/dL (13.0-17.0); Lymphocytes # (A) 1.41 X 10*3/uL (0.90-5.00); Lymphocytes % (A) 16.7 %; MCH 30.8 pg (27.0-32.0); MCHC 32.7 g/dL (32.0-37.0); Mean Platelet Volume 11.4 FL (9.5-12.2); Monocytes # (A) 0.86 X 10*3/uL (0.20-1.00); Monocytes % (A) 10.2 %; NRBC Per 100 WBC 0 X 10*3/uL (0.00-0.01); Neutrophils # (A) 5.67 X 10*3/uL (1.80-7.70); Neutrophils % (A) 67.2 %; Platelet Count 163 X 10*3/uL (140-440); RBC 3.64 X 10*6/uL (4.40-5.60); RDW 13.9 % (11.5-14.5); WBC 8.44 X 10*3/uL (4.50-10.00)
[2024-04-26 11:32] LABS: Glucose,Whole Blood 282 mg/dL (70-110)
[2024-04-26 12:22] LABS: ALT 16 U/L (10-49); AST 28 U/L (14-35); Albumin 3.4 g/dL (3.8-4.9); Albumin/Globulin Ratio 1.62 Ratio (1.60-3.17); Alkaline Phosphatase 64 U/L (41-126); BUN/Creat Ratio 19.62 Ratio (12.00-20.00); Blood Urea Nitrogen 25.5 mg/dL (9.0-27.0); Calcium 8.8 mg/dL (8.7-10.3); Carbon Dioxide 21.9 mmol/L (21.6-31.8); Chloride 107 mmol/L (96-109); Globulin 2.1 g/dL (1.6-3.3); Glucose 166 mg/dL (70-110); Potassium 4.5 mmol/L (3.5-5.5); Sodium 140 mmol/L (135-145); Total Bilirubin 0.4 mg/dL (0.3-1.2); Total Protein 5.5 g/dL (6.2-8.2)
--- NOTE | 2024-04-26 15:14 | P.PN ---
Subjective Progress Note Date: 04/25/24 Principal diagnosis: Reason for follow-up is pneumonia Patient is a 88-year-old male with a past medical history significant for diabetes mellitus hypertension hypothyroidism history of prostate cancer status post prostatectomy patient has been brought into the hospital for evaluation of increasing shortness of breath and possible aspiration, patient be diagnosed with pneumonia. On today's evaluation that is 04/25/2024, the patient continues to be afebrile, the patient is on room air and breathing comfortably, the Pt denies having any chest pain acute did have a cough bring up some purulent sputum no nausea vomiting no further choking on the food abdominal pain or diarrhea. Patient white count is down to 10.50, creatinine is 1.3 Objective - Vital Signs Vital signs: Vital Signs Temp 98.6 F 04/25/24 07:00 Pulse 74 04/25/24 12:19 Resp 17 04/25/24 07:00 BP 153/88 04/25/24 07:00 Pulse Ox 94 L 04/25/24 09:27 FiO2 Intake & Output 04/24/24 04/25/24 04/25/24 18:59 06:59 18:59 Intake Total 240 Balance 240 Weight 70.307 kg Intake: Oral 240 Other: # Voids 1 1 - Exam GENERAL DESCRIPTION: An elderly male up in the chair in no distress RESPIRATORY SYSTEM: Unlabored breathing , decreased breath sounds at bases HEART: S1 S2 regular rate and rhythm , ABDOMEN: Soft , no tenderness EXTREMITIES: No edema feet - Labs CBC & Chem 7: 04/26/24 03:13 04/26/24 03:13 Labs: Abnormal Lab Results - Last 24 Hours (Table) 04/23/24 04/24/24 04/24/24 Range/Units 23:05 04:02 18:40 WBC (4.50-10.00) X 10*3/uL RBC (4.40-5.60) X 10*6/uL Hgb (13.0-17.0) g/dL Hct (39.6-50.0) % Neutrophils # (1.80-7.70) X 10*3/uL Est GFR (CKD-EPI) (>=60) Glucose (70-110) mg/dL POC Glucose (mg/dL) 175 H 155 H (70-110) mg/dL Hemoglobin A1c 8.2 H (<=6.0) % Total Protein (6.2-8.2) g/dL Albumin (3.8-4.9) g/dL 04/24/24 04/25/24 04/25/24 Range/Units 20:52 03:08 03:08 WBC 10.50 H (4.50-10.00) X 10*3/uL RBC 3.85 L (4.40-5.60) X 10*6/uL Hgb 11.7 L (13.0-17.0) g/dL Hct 36.0 L (39.6-50.0) % Neutrophils # 7.76 H (1.80-7.70) X 10*3/uL Est GFR (CKD-EPI) 53 L (>=60) Glucose 123 H (70-110) mg/dL POC Glucose (mg/dL) 267 H (70-110) mg/dL Hemoglobin A1c (<=6.0) % Total Protein 5.9 L (6.2-8.2) g/dL Albumin 3.7 L (3.8-4.9) g/dL 04/25/24 04/25/24 Range/Units 06:24 12:10 WBC (4.50-10.00) X 10*3/uL RBC (4.40-5.60) X 10*6/uL Hgb (13.0-17.0) g/dL Hct (39.6-50.0) % Neutrophils # (1.80-7.70) X 10*3/uL Est GFR (CKD-EPI) (>=60) Glucose (70-110) mg/dL POC Glucose (mg/dL) 187 H 217 H (70-110) mg/dL Hemoglobin A1c (<=6.0) % Total Protein (6.2-8.2) g/dL Albumin (3.8-4.9) g/dL Microbiology - Last 24 Hours (Table) 04/23/24 20:13 Blood Culture - Preliminary Blood Assessment and Plan (1) Aspiration pneumonitis Current Visit: Yes Status: Acute Code(s): J69.0 - PNEUMONITIS DUE TO INHALATION OF FOOD AND VOMIT SNOMED Code(s): 228496564 (2) Leukocytosis Current Visit: Yes Status: Acute Code(s): D72.829 - ELEVATED WHITE BLOOD CELL COUNT, UNSPECIFIED SNOMED Code(s): 548811761 Plan: 1patient presented to hospital with increasing shortness of breath and cough symptoms apparently started after he did have a meal concerning for possible choking/aspiration etiology 2-leukocytosis likely due to aspiration pneumonitis, white count is improving 3-sputum for Gram stain culture has been collected results will be followed 4-patient to continue with Rocephin and Flagyl while waiting for the workup to be completed Dictation was produced using [employer] dictation software. please excuse any gramma tical, word or spelling errors. Time with Patient: Less than 30
--- NOTE | 2024-04-26 15:15 | P.PN ---
Subjective Progress Note Date: 04/26/24 Principal diagnosis: Reason for follow-up is pneumonia Patient is a 88-year-old male with a past medical history significant for diabetes mellitus hypertension hypothyroidism history of prostate cancer status post prostatectomy patient has been brought into the hospital for evaluation of increasing shortness of breath and possible aspiration, patient be diagnosed with pneumonia. On today's evaluation that is 04/26/2024, patient did not have any fever and denies any chills, patient is breathing comfortably on room air, patient with no chest pain denies any worsening cough and no choking on food, patient did not have any abdominal pain nausea vomiting or any loose stools. Patient white count is 8.44, creatinine is 1.3 blood and sputum culture currently pending Objective - Vital Signs Vital signs: Vital Signs Temp 97.6 F 04/26/24 07:40 Pulse 88 04/26/24 11:37 Resp 16 04/26/24 11:37 BP 163/86 04/26/24 07:40 Pulse Ox 91 L 04/26/24 08:00 FiO2 Intake & Output 04/25/24 04/26/24 04/26/24 18:59 06:59 18:59 Intake Total 440 Balance 440 Intake: Oral 440 Other: # Voids 4 1 - Exam GENERAL DESCRIPTION: An elderly male up in the chair in no distress RESPIRATORY SYSTEM: Unlabored breathing , decreased breath sounds at bases HEART: S1 S2 regular rate and rhythm , ABDOMEN: Soft , no tenderness EXTREMITIES: No edema feet - Labs CBC & Chem 7: 04/26/24 03:13 04/26/24 03:13 Labs: Abnormal Lab Results - Last 24 Hours (Table) 04/25/24 04/25/24 04/26/24 Range/Units 16:44 20:18 03:13 RBC 3.64 L (4.40-5.60) X 10*6/uL Hgb 11.2 L (13.0-17.0) g/dL Hct 34.2 L (39.6-50.0) % Eosinophils # 0.42 H (0.04-0.35) X 10*3/uL Est GFR (CKD-EPI) (>=60) Glucose (70-110) mg/dL POC Glucose (mg/dL) 260 H 267 H (70-110) mg/dL Total Protein (6.2-8.2) g/dL Albumin (3.8-4.9) g/dL 04/26/24 04/26/24 04/26/24 Range/Units 03:13 06:46 11:30 RBC (4.40-5.60) X 10*6/uL Hgb (13.0-17.0) g/dL Hct (39.6-50.0) % Eosinophils # (0.04-0.35) X 10*3/uL Est GFR (CKD-EPI) 53 L (>=60) Glucose 166 H (70-110) mg/dL POC Glucose (mg/dL) 203 H 282 H (70-110) mg/dL Total Protein 5.5 L (6.2-8.2) g/dL Albumin 3.4 L (3.8-4.9) g/dL Microbiology - Last 24 Hours (Table) 04/25/24 12:05 Gram Stain - Preliminary Sputum Sputum Culture - Preliminary 04/23/24 20:13 Blood Culture - Preliminary Blood Assessment and Plan (1) Aspiration pneumonitis Current Visit: Yes Status: Acute Code(s): J69.0 - PNEUMONITIS DUE TO INHALATION OF FOOD AND VOMIT SNOMED Code(s): 794028559 (2) Leukocytosis Current Visit: Yes Status: Acute Code(s): D72.829 - ELEVATED WHITE BLOOD CELL COUNT, UNSPECIFIED SNOMED Code(s): 686392428 Plan: 1patient presented to hospital with increasing shortness of breath and cough sy mptoms apparently started after he did have a meal concerning for possible choking/aspiration etiology 2-leukocytosis likely due to aspiration pneumonitis, white count has normalized 3-sputum for Gram stain culture has been collected results are currently pending 4-patient to continue with Rocephin and Flagyl if culture negative will consider short course of oral Augmentin on discharge hopefully tomorrow Family the bedside question answered Dictation was produced using [employer] dictation software. please excuse any grammatical, word or spelling errors. Time with Patient: Less than 30
[2024-04-26 16:56] LABS: Glucose,Whole Blood 257 mg/dL (70-110)
[2024-04-26 20:18] LABS: Glucose,Whole Blood 258 mg/dL (70-110)
[2024-04-27 06:20] LABS: Glucose,Whole Blood 226 mg/dL (70-110)
[2024-04-27 08:36] VITALS: BP 164/86; PULSE 78; RESP 16; TEMP 98.7
[2024-04-27 09:27] LABS: Basophils # (A) 0.07 X 10*3/uL (0.00-0.10); Basophils % (A) 0.9 %; Eosinophils # (A) 0.43 X 10*3/uL (0.04-0.35); Eosinophils % (A) 5.7 %; HCT 35.5 % (39.6-50.0); HGB 11.9 g/dL (13.0-17.0); Lymphocytes # (A) 1.12 X 10*3/uL (0.90-5.00); Lymphocytes % (A) 14.8 %; MCH 30.8 pg (27.0-32.0); MCHC 33.5 g/dL (32.0-37.0); Mean Platelet Volume 11.6 FL (9.5-12.2); Monocytes # (A) 0.69 X 10*3/uL (0.20-1.00); Monocytes % (A) 9.1 %; NRBC Per 100 WBC 0 X 10*3/uL (0.00-0.01); Neutrophils # (A) 5.26 X 10*3/uL (1.80-7.70); Neutrophils % (A) 69.2 %; Platelet Count 178 X 10*3/uL (140-440); RBC 3.86 X 10*6/uL (4.40-5.60); RDW 13.8 % (11.5-14.5); WBC 7.59 X 10*3/uL (4.50-10.00)
--- NOTE | 2024-04-27 10:26 | P.PN ---
Subjective Progress Note Date: 04/27/24 Chris Rosenthal, presented to the ER with concerns ofcough and shortness of breath. According to family at bedside patient was eating when he started to cough and felt like something was stuck. Patient went to the urgent care which prompted them to go to hospital and patient was transferred here for further evaluation patient has a past medical history of diabetes mellitus, hypertension, hypothyroidism, prostate cancer, stroke and dementia. Chest x-ray completed showing no acute cardiopulmonary disease. Lab work completed showing white blood cell 11.79, creatinine 1.2, bun 22.1. Current vital signs temp 98.5, heart 84, respiratory rate 18, blood pressure 127/65 with a pulse ox of 96% on 2 L.at this time patient will be admitted and started on IV antibiotics infectious disease service is consulted. Speech services also consulted to assess swallow. Patient denies chest pain or shortness of breath. Patient denies nausea vomiting or diarrhea. Patient denies any urinary burning or frequency On 05/03/2024 patient is alert and oriented x 3 currently resting in bed. Patient remains on IV antibiotics Rocephin and Flagyl. Patient was eval by speech services and diet make and recommendations of dysphagia level 3 chopped diet one-to-one supervision with aspiration precautions. White blood cell 10.5. Current vital signs temp 98.6, heart rate 77, respiratory rate 17, blood pressure 153/88 with a pulse ox of 96% on 2 L. Patient denies chest pain or shortness of breath. Patient denies nausea vomiting or diarrhea. Patient denies any urinary burning or frequency On 04/26/2024 patient is alert and oriented x 3 currently resting comfortably in bed. Patient remains on IV Rocephin and IV Flagyl awaiting cultures. Patient remains on dysphagia aspiration precaution diet. Patient denies chest pain or shortness of breath. Patient denies nausea vomiting or diarrhea. Patient adilia es any urinary burning or frequency On 04/27/2024 patient was seen and examined on the medical floor he is alert and oriented x 3 in no apparent distress, there is no fever or chills no headache or dizziness he has occasional cough, no chest pain no shortness of breath no nausea or vomiting no abdominal pain no diarrhea and no urinary symptoms, he remains on IV antibiotics for aspiration pneumonia. Infectious disease is following. Objective - Vital Signs Vital signs: Vital Signs Temp 98.7 F 04/27/24 06:45 Pulse 84 04/27/24 08:25 Resp 16 04/27/24 06:45 BP 164/86 04/27/24 06:45 Pulse Ox 97 04/27/24 08:16 FiO2 Intake & Output 04/26/24 04/27/24 04/27/24 18:59 06:59 18:59 Intake Total 2500 Balance 2500 Intake: Intake, IV Titration 200 Amount metroNIDAZOLE-NS PMX 500 200 mg In Saline 1 100ml.bag @ 100 mls/hr IVPB Q8HR EMIL Rx#:[id number] Oral 2300 Other: Voiding Method Urinal # Voids 2 - Exam Head normocephalic Neck supple Lungs clear to auscultation bilaterally no wheezing or crackles Heart regular rate and rhythm S1-S2, no rub or gallop Abdomen is soft nontender nondistended positive bowel sounds no hepatosplenomegaly Extremities no edema Neuro alert and orientated to 3. Intermittently confused - Labs CBC & Chem 7: 04/27/24 05:44 04/26/24 03:13 Labs: Abnormal Lab Results - Last 24 Hours (Table) 04/26/24 04/26/24 04/26/24 Range/Units 03:13 03:13 11:30 RBC 3.64 L (4.40-5.60) X 10*6/uL Hgb 11.2 L (13.0-17.0) g/dL Hct 34.2 L (39.6-50.0) % Eosinophils # 0.42 H (0.04-0.35) X 10*3/uL Est GFR (CKD-EPI) 53 L (>=60) Glucose 166 H (70-110) mg/dL POC Glucose (mg/dL) 282 H (70-110) mg/dL Total Protein 5.5 L (6.2-8.2) g/dL Albumin 3.4 L (3.8-4.9) g/dL 04/26/24 04/26/24 04/27/24 Range/Units 16:53 20:17 06:19 RBC (4.40-5.60) X 10*6/uL Hgb (13.0-17.0) g/dL Hct (39.6-50.0) % Eosinophils # (0.04-0.35) X 10*3/uL Est GFR (CKD-EPI) (>=60) Glucose (70-110) mg/dL POC Glucose (mg/dL) 257 H 258 H 226 H (70-110) mg/dL Total Protein (6.2-8.2) g/dL Albumin (3.8-4.9) g/dL Microbiology - Last 24 Hours (Table) 04/23/24 20:13 Blood Culture - Preliminary Blood 04/25/24 12:05 Gram Stain - Preliminary Sputum Sputum Culture - Preliminary Assessment and Plan Assessment: 1. Concerns of aspiration pneumonia 2. Diabetes mellitus type 2 3. History of dementia 4. History of stroke 5. History of hyperlipidemia 6. History of prostate cancer DVT prophylaxis Lovenox. GI prophylaxis Protonix Continue IV antibiotics at this time Infectious disease service is consulted Speech service is consulted to assess swallow Repeat labs ordered in a.m.
[2024-04-27 11:49] LABS: Glucose,Whole Blood 229 mg/dL (70-110)
[2024-04-27 12:29] LABS: ALT 15 U/L (10-49); AST 25 U/L (14-35); Albumin 3.4 g/dL (3.8-4.9); Albumin/Globulin Ratio 1.55 Ratio (1.60-3.17); Alkaline Phosphatase 66 U/L (41-126); BUN/Creat Ratio 17.85 Ratio (12.00-20.00); Blood Urea Nitrogen 23.2 mg/dL (9.0-27.0); Calcium 8.8 mg/dL (8.7-10.3); Carbon Dioxide 20.4 mmol/L (21.6-31.8); Chloride 108 mmol/L (96-109); Globulin 2.2 g/dL (1.6-3.3); Glucose 211 mg/dL (70-110); Potassium 4.5 mmol/L (3.5-5.5); Sodium 141 mmol/L (135-145); Total Bilirubin 0.4 mg/dL (0.3-1.2); Total Protein 5.6 g/dL (6.2-8.2)
--- NOTE | 2024-04-28 15:52 | P.PN ---
Subjective Progress Note Date: 04/27/24 Principal diagnosis: Reason for follow-up is pneumonia Patient is a 88-year-old male with a past medical history significant for diabetes mellitus hypertension hypothyroidism history of prostate cancer status post prostatectomy patient has been brought into the hospital for evaluation of increasing shortness of breath and possible aspiration, patient be diagnosed with pneumonia. On today's evaluation that is 04/27/2024, Patient is afebrile patient is currently on room air and denies having any shortness of breath, the patient denies any chest pain cough decreased intensity, the patient denies any nausea vomiting did not have any abdominal pain and no diarrhea, patient feeling better wants to go home. Patient white count is 7.59, creatinine is 1.3 sputum culture so far negative blood culture so far negative Objective - Vital Signs Vital signs: Vital Signs Temp 98.7 F 04/27/24 06:45 Pulse 84 04/27/24 08:25 Resp 16 04/27/24 06:45 BP 164/86 04/27/24 06:45 Pulse Ox 97 04/27/24 08:16 FiO2 Intake & Output 04/26/24 04/27/24 04/27/24 18:59 06:59 18:59 Intake Total 2500 Balance 2500 Intake: Intake, IV Titration 200 Amount metroNIDAZOLE-NS PMX 500 200 mg In Saline 1 100ml.bag @ 100 mls/hr IVPB Q8HR EMIL Rx#:[id number] Oral 2300 Other: Voiding Method Urinal # Voids 2 - Exam GENERAL DESCRIPTION: An elderly male up in the chair in no distress RESPIRATORY SYSTEM: Unlabored breathing , decreased breath sounds at bases HEART: S1 S2 regular rate and rhythm , ABDOMEN: Soft , no tenderness EXTREMITIES: No edema feet - Labs CBC & Chem 7: 04/27/24 05:44 04/27/24 05:44 Labs: Abnormal Lab Results - Last 24 Hours (Table) 04/26/24 04/26/24 04/26/24 Range/Units 03:13 03:13 11:30 RBC 3.64 L (4.40-5.60) X 10*6/uL Hgb 11.2 L (13.0-17.0) g/dL Hct 34.2 L (39.6-50.0) % Eosinophils # 0.42 H (0.04-0.35) X 10*3/uL Est GFR (CKD-EPI) 53 L (>=60) Glucose 166 H (70-110) mg/dL POC Glucose (mg/dL) 282 H (70-110) mg/dL Total Protein 5.5 L (6.2-8.2) g/dL Albumin 3.4 L (3.8-4.9) g/dL 04/26/24 04/26/24 04/27/24 Range/Units 16:53 20:17 06:19 RBC (4.40-5.60) X 10*6/uL Hgb (13.0-17.0) g/dL Hct (39.6-50.0) % Eosinophils # (0.04-0.35) X 10*3/uL Est GFR (CKD-EPI) (>=60) Glucose (70-110) mg/dL POC Glucose (mg/dL) 257 H 258 H 226 H (70-110) mg/dL Total Protein (6.2-8.2) g/dL Albumin (3.8-4.9) g/dL Microbiology - Last 24 Hours (Table) 04/23/24 20:13 Blood Culture - Preliminary Blood 04/25/24 12:05 Gram Stain - Preliminary Sputum Sputum Culture - Preliminary Assessment and Plan (1) Aspiration pneumonitis Status: Acute Code(s): J69.0 - PNEUMONITIS DUE TO INHALATION OF FOOD AND VOMIT SNOMED Code(s): 928718626 (2) Leukocytosis Status: Acute Code(s): D72.829 - ELEVATED WHITE BLOOD CELL COUNT, UNSPECIFIED SNOMED Code(s): 674923264 Plan: 1patient presented to hospital with increasing shortness of breath and cough symptoms apparently started after he did have a meal concerning for possible choking/aspiration etiology 2-leukocytosis likely due to aspiration pneumonitis, white count has normalized 3-sputum for Gram stain culture has been negative so far 4-patient has shown clinical improvement and is insisting on going home we will finish therapy with oral Augmentin prescription has been sent to the pharmacy Dictation was produced using [employer] software. please excuse any grammatical, word or spelling errors. Time with Patient: Less than 30
--- NOTE | 2024-04-29 09:33 | P.DS ---
Providers Date of admission: 04/23/24 19:49 Expected date of discharge: 04/27/24 Attending physician: Augustina Edwards Consults: 04/23/24 19:43 Consult Physician Routine Consulting Provider: Romero Simms Consult Reason/Comments: pna Do you want consulting provider notified?: Yes Primary care physician: Romero Simms Hospital Course: Discharge diagnosis 1. Concerns of aspiration pneumonia 2. Diabetes mellitus type 2 3. History of dementia 4. History of stroke 5. History of hyperlipidemia 6. History of prostate cancer Hospital course Chris Rosenthal, presented to the ER with concerns ofcough and shortness of breath. According to family at bedside patient was eating when he started to cough and felt like something was stuck. Patient went to the urgent care which prompted them to go to hospital and patient was transferred here for further evaluation patient has a past medical history of diabetes mellitus, hyperte nsion, hypothyroidism, prostate cancer, stroke and dementia. Chest x-ray completed showing no acute cardiopulmonary disease. Lab work completed showing white blood cell 11.79, creatinine 1.2, bun 22.1. Current vital signs temp 98.5, heart 84, respiratory rate 18, blood pressure 127/65 with a pulse ox of 96% on 2 L.at this time patient will be admitted and started on IV antibiotics infectious disease service is consulted. Speech services also consulted to assess swallow. Patient denies chest pain or shortness of breath. Patient denies nausea vomiting or diarrhea. Patient denies any urinary burning or frequency On 05/03/2024 patient is alert and oriented x 3 currently resting in bed. Patient remains on IV antibiotics Rocephin and Flagyl. Patient was eval by speech services and diet make and recommendations of dysphagia level 3 chopped diet one-to-one supervision with aspiration precautions. White blood cell 10.5. Current vital signs temp 98.6, heart rate 77, respiratory rate 17, blood pressure 153/88 with a pulse ox of 96% on 2 L. Patient denies chest pain or shortness of breath. Patient denies nausea vomiting or diarrhea. Patient denies any urinary burning or frequency On 04/26/2024 patient is alert and oriented x 3 currently resting comfortably in bed. Patient remains on IV Rocephin and IV Flagyl awaiting cultures. Patient remains on dysphagia aspiration precaution diet. Patient denies chest pain or shortness of breath. Patient denies nausea vomiting or diarrhea. Patient denies any urinary burning or frequency On 04/27/2024 patient was seen and examined on the medical floor he is alert and oriented x 3 in no apparent distress, there is no fever or chills no headache or dizziness he has occasional cough, no chest pain no shortness of breath no nause a or vomiting no abdominal pain no diarrhea and no urinary symptoms, he remains on IV antibiotics for aspiration pneumonia. Infectious disease is following. Patient has been cleared for discharge patient will be discharged on Augmentin and follow-up with PCP for further management Patient Condition at Discharge: Stable Plan - Discharge Summary Discharge Rx Participant: No New Discharge Prescriptions: New Amoxic-Pot Clav 875-125Mg [Augmentin 875-125] 1 tab PO BID 7 Days #14 tab Continue Aspirin 81 mg PO DAILY metFORMIN HCL [Metformin HCl] 500 mg PO BID Multivitamin [Men's Multi-Vitamin] 1 tab PO DAILY Cyanocobalamin (Vitamin B-12) [Vitamin B-12] 1,000 mcg PO DAILY Empagliflozin [Jardiance] 10 mg PO DAILY Ferrous Sulfate [Iron (65 MG Elemental)] 325 mg PO DAILY Levothyroxine Sodium [Synthroid] 75 mcg PO DAILY Vit C/E/Zn/Coppr/Lutein/Zeaxan [Preservision Areds 2 Softgel] 1 cap PO BID Rosuvastatin Calcium 5 mg PO DAILY Vitamin D3(Unknown Dose) 1 tab PO DAILY Insulin Degludec [Tresiba Flextouch U-100 Pen] 10 units SQ DAILY Memantine [Namenda] 10 mg PO BID Nystatin [Nystop] 1 applic TOPICAL BID Psyllium Husk (with Sugar) [Metamucil Powder] 1 tbsp PO TID Discharge Medication List Aspirin 81 mg PO DAILY 10/19/16 [History] Multivitamin [Men's Multi-Vitamin] 1 tab PO DAILY 10/19/16 [History] metFORMIN HCL [Metformin HCl] 500 mg PO BID 10/19/16 [History] Cyanocobalamin (Vitamin B-12) [Vitamin B-12] 1,000 mcg PO DAILY 08/14/22 [History] Rosuvastatin Calcium 5 mg PO DAILY 08/14/22 [History] Vit C/E/Zn/Coppr/Lutein/Zeaxan [Preservision Areds 2 Softgel] 1 cap PO BID 08/14/22 [History] Empagliflozin [Jardiance] 10 mg PO DAILY 04/23/24 [History] Ferrous Sulfate [Iron (65 MG Elemental)] 325 mg PO DAILY 04/23/24 [History] Insulin Degludec [Tresiba Flextouch U-100 Pen] 10 units SQ DAILY 04/23/24 [Hi story] Levothyroxine Sodium [Synthroid] 75 mcg PO DAILY 04/23/24 [History] Memantine [Namenda] 10 mg PO BID 04/23/24 [History] Nystatin [Nystop] 1 applic TOPICAL BID 04/23/24 [History] Psyllium Husk (with Sugar) [Metamucil Powder] 1 tbsp PO TID 04/23/24 [History] Vitamin D3(Unknown Dose) 1 tab PO DAILY 04/23/24 [History] Amoxic-Pot Clav 875-125Mg [Augmentin 875-125] 1 tab PO BID 7 Days #14 tab [Rx] Follow up Appointment(s)/Referral(s): Romero Simms MD [Primary Care Provider] - 1-2 days Patient Instructions/Handouts: Aspiration Pneumonia (GEN) Discharge Disposition: HOME SELF-CARE
== END 2024-04-27 14:06 | disposition home or self-care (01) | DRG 178 ==
LOC: EC 18:34 → 4SSUR 19:49
PROVIDERS: ADMIT Internal Medicine; ATTEND Internal Medicine
DX: J69.0 Pneumonitis due to inhalation of food and vomit (principal); E87.1 Hypo-osmolality and hyponatremia; F03.94 Unspecified dementia, unspecified severity, with anxiety; E11.9 Type 2 diabetes mellitus without complications; I10 Essential (primary) hypertension; E03.9 Hypothyroidism, unspecified; E78.5 Hyperlipidemia, unspecified; Z79.82 Long term (current) use of aspirin; Z79.84 Long term (current) use of oral hypoglycemic drugs; Z79.4 Long term (current) use of insulin; Z79.890 Hormone replacement therapy; Z91.041 Radiographic dye allergy status; Z85.46 Personal history of malignant neoplasm of prostate; Z86.73 Personal history of transient ischemic attack (TIA), and cerebral infarction without residual deficits; Z79.899 Other long term (current) drug therapy; Z87.442 Personal history of urinary calculi; Z90.79 Acquired absence of other genital organ(s); Z86.0100 Personal history of colon polyps, unspecified
CPT/HCPCS: 36415; 71045; 80048; 80053; 83036; 83605; 83735; 83880; 84484; 85025; 85610; 85730; 87040; 87070; 87205; 87449; 93005; 94640; 94664; 94760; 96361; 96365; 96366; 96367; 96372; 99285